=== PATIENT | male | born 1965 | race African-American/Black ===

== ENCOUNTER 2020-01-01 21:01 | Emergency (ER) | payer MEDICARE, SELFPAY ==
[2020-01-01 21:02] VITALS: BP 185/98; PULSE 90; RESP 20; TEMP 35.6; O2SAT 99
--- NOTE | 2020-01-01 21:51 | ED.DENTAL ---
HPI - Dental/Oral General Chief complaint: Dental/Oral Stated complaint: tooth ache Time Seen by Provider: 01/01/20 21:40 Source: patient and family Mode of arrival: ambulatory Limitations: no limitations History of Present Illness HPI Narrative: Patient presents with dental pain, multiple teeth in the last 2 days. Last time was seen by dentist 2 years ago.. Patient denies any fever, chills, nausea, vomiting Related Data Home Medications Medication Instructions Recorded Confirmed atorvastatin 20 mg tablet 20 mg PO DAILY 07/20/19 07/21/19 exenatide 10 mcg SUB-Q QAM AND QPM 07/20/19 07/21/19 furosemide 40 mg tablet 40 mg PO QAM 07/20/19 07/21/19 hydralazine 100 mg tablet 100 mg PO BID 07/20/19 07/21/19 irbesartan 300 mg tablet 300 mg PO DAILY 07/20/19 07/21/19 metformin 1,000 mg tablet 1,000 mg PO BID 07/20/19 07/21/19 metoprolol tartrate 100 mg tablet 100 mg PO Q12H 07/20/19 07/21/19 rivaroxaban 20 mg tablet 20 mg PO DAILY 07/20/19 07/21/19 spironolactone 25 mg tablet 25 mg PO DAILY 07/20/19 07/21/19 warfarin 5 mg tablet 5 mg PO DAILY 07/20/19 07/21/19 Allergies Allergy/AdvReac Type Severity Reaction Status Date / Time No Known Allergies Allergy Unknown Unverified 11/07/15 22:01 Review of Systems Review of Systems: Narrative: CONSTITUTIONAL: Denies fever, chills, or sweats. EYES: Denies visual changes, redness, or discharge. ENT: Denies rhinorrhea, congestion, sore throat, or otalgia. CARDIOVASCULAR: Denies chest pain, palpitations, or edema. RESPIRATORY: Denies cough or dyspnea. GASTROINTESTINAL: Denies abdominal pain, nausea, vomiting, or diarrhea. GENITOURINARY: Denies dysuria or hematuria. SKIN: Denies rash or itching. MUSCULOSKELETAL: Denies back pain, joint pain, or myalgia. NEUROLOGIC: Denies headache, numbness, or weakness. PSYCHIATRIC: Denies anxiety or depression. [facility] Past Medical History Medical History Anemia Cardiomyopathy CHF (congestive heart failure) Chronic kidney disease Depression Diabetes mellitus Esophagitis Gynecomastia Heart disease Hypertension JAQUELIN (obstructive sleep apnea) Peripheral neuralgia Uveitis Surgical History Surgical History H/O knee surgery History of gastric surgery History of sleeve gastrectomy Family History Family History Mother Diabetes mellitus Father Hypertensive CHF Social History Social History Smoking status: Never smoker Exam Narrative: Exam Narrative: General appearance: Well-developed, well-nourished Skin: Normal color Head: Normocephalic, nontraumatic Eyes: Clear conjunctiva ENT: Oropharynx normal, ears normal, nose normal, multiple dental decay Neck: Supple, nontender Chest and respiratory: Airway patent, no respiratory distress, no accessory muscle use Heart: Regular rate/rhythm Neurologic: Alert and oriented ?3, [employer] is normal as tested, no gross motor deficit Course Course Emergency Course: Stable Vital Signs Vital signs: Vital Signs Temperature 35.6 C L 01/01/20 21:02 Pulse Rate 90 01/01/20 21:02 Respiratory Rate 20 01/01/20 21:02 Blood Pressure 185/98 H 01/01/20 21:02 Pulse Oximetry 99 01/01/20 21:02 Temperature 35.6 C L 01/01/20 21:02 Pulse Rate 90 01/01/20 21:02 Respiratory Rate 20 01/01/20 21:02 Blood Pressure 185/98 H 01/01/20 21:02 Pulse Oximetry 99 01/01/20 21:02 MDM - Dental/Oral MDM Narrative Medical decision making narrative: Dental decay, patient on Coumadin, will be discharged on penicillin
[2020-01-01] MEDS: ONDANSETRON HCL ODT 4 MG TABLET PO (22:02)
[2020-01-01] MEDS: HYDROmorphone HCL INJ (*CRX) 1 MG/ML SYR IM (22:02)
[2020-01-01 22:13] VITALS: BP 155/105; PULSE 81; RESP 20; O2SAT 97
== END 2020-01-01 22:07 | disposition home or self-care (01) ==
PROVIDERS: Emergency Provider Emergency Medicine; PCP Internal Medicine Gastroenterology
DX: K02.9 Dental caries, unspecified (principal); I50.9 Heart failure, unspecified; I12.9 Hypertensive chronic kidney disease with stage 1 through stage 4 chronic kidney disease, or unspecified chronic kidney disease; E11.22 Type 2 diabetes mellitus with diabetic chronic kidney disease; N18.9 Chronic kidney disease, unspecified; G47.33 Obstructive sleep apnea (adult) (pediatric); E11.42 Type 2 diabetes mellitus with diabetic polyneuropathy; Z98.84 Bariatric surgery status; Z79.01 Long term (current) use of anticoagulants; Z79.84 Long term (current) use of oral hypoglycemic drugs
CPT/HCPCS: 96372; 99283; A9270; J1170

== ENCOUNTER 2020-11-20 12:02 | Inpatient (IN) | payer OTHER, SELFPAY ==
[2020-11-20] VITALS (14 sets, daily range): BP systolic 112–146; BP diastolic 67–93; PULSE 89–109; RESP 14–26; TEMP 36.1–36.6; O2SAT 84–95
--- NOTE | ~2020-11-20 | XR_ITS ---
XR chest 1V portable 11/22/2020 06:10 Indication: CovidPneumonia. Dyspnea. Procedure: AP portable chest Comparison: Comparison to multiple prior studies sequentially, with oldest reviewed study dated 05/26. Findings: Patchy bilateral airspace disease, compatible with pneumonia. No pleural effusion or pneumo thorax. No acute osseous abnormality. Impression: 1: Significant progression of patchy bilateral airspace disease, compatible with pneumonia. Reviewed, dictated and finalized at location A. Impression: 1: Significant progression of patchy bilateral airspace disease, compatible wit h pneumonia.
--- NOTE | ~2020-11-20 | XR_ITS ---
XR chest PICC line 11/25/2020 12:49 Indication: PICC line placement Procedure: AP portable chest Comparison: Comparison to multiple prior studies sequentially, with oldest reviewed study dated 11/22. Findings: PICC line tip in the condyle aspect of the SVC. NG tube passes into the abdomen, tip not ev aluated. There is improving patchy bilateral airspace disease. No significant effusion or pneumothora x. Endotracheal tube tip approximately 4 cm above the luana. Impression: 1: Improving bilateral airspace disease, consistent with resolving pneumonia. Reviewed, dictated and finalized at location A. Impression: 1: Improving bilateral airspace disease, consistent with resolving pneumonia.
--- NOTE | ~2020-11-20 | CT_ITS ---
EXAMINATION: CT diagnostic chest wo con DATE: 11/20/2020 19:23 INDICATION: Consolidation on chest x-ray TECHNIQUE: Computed tomography (CT) of the chest was performed without intravenous contrast. Addition al 3D reconstructions utilizing coronal maximum intensity projection (MIP) were performed. Automated exposure control and iterative reconstruction technique were employed. The dose-length product was 90 8.45 mGy-cm. COMPARISON: 11/22/2011 FINDINGS: Air bronchograms extend through a 6.7 x 5.3 cm region of consolidation in the posterior segment of th e right upper lobe. Numerous additional less dense centrilobular groundglass opacities scattered thro ughout both lungs. No pleural effusion or pneumothorax. Heart size is normal. Atherosclerotic coronar y artery calcification. No pericardial effusion. Thoracic aorta is normal in caliber. No pathological ly enlarged thoracic lymphadenopathy. Small sliding-type hiatal hernia. Sleeve gastrectomy with sutur e line along the greater curvature of the stomach. Diffuse hepatic steatosis. Bones are unremarkable. IMPRESSION: 1. Large masslike region of consolidation with central air bronchograms in the right upper lobe and n umerous additional scattered centrilobular groundglass opacities throughout both lungs consistent wit h multifocal pneumonia. 2. Diffuse hepatic steatosis. 2. Small sliding-type hiatal hernia. Reviewed, dictated and finalized at location A. IMPRESSION: 1. Large masslike region of consolidation with central air bronchograms in the right upper lobe and numerous additional scattered centrilobular groundglass op acities throughout both lungs consistent with multifocal pneumonia. 2. Diffuse hepatic steatosis. 2. Small sliding-type hiatal hernia.
--- NOTE | ~2020-11-20 | MR_ITS ---
EXAMINATION: MR lumbar spine wo con DATE: 11/21/2020 13:36 INDICATION: Back pain. Saddle anesthesia. TECHNIQUE: Magnetic resonance imaging (MRI) of the lumbar spine was performed without intravenous con trast. Sequences included sagittal T2-weighted FSE, sagittal T2-weighted FS FSE, sagittal STIR FSE, s agittal T1-weighted FSE, and axial T2-weighted FSE. COMPARISON: Lumbar spine MRI 12/11/2013, CT 11/20/2020 FINDINGS: There is 3 degrees levocurvature of lumbar spine. Vertebral body heights and intervertebral disc heights are normal. Osseous central spinal canal is developmentally small from L2 to L5. Epidur al lipomatosis is noted. The distal spinal cord signal intensity is normal. The conus medullaris is a t T12-L1. The following disc levels are specifically discussed: L1-L2: The disc does not extend beyond the endplate margin. There is mild bilateral facet joint osteo arthritis. There is no neural foraminal stenosis. There is no central canal stenosis. L2-L3: The disc does not extend beyond the endplate margin. There is moderate bilateral facet joint o steoarthritis. There is no neural foraminal stenosis. There is mild central canal stenosis. L3-L4: The disc is mildly bulging. There is mild right facet joint osteoarthritis. There is mild bila teral neural foraminal stenosis. There is mild central canal stenosis. L4-L5: The disc is mildly bulging. There is mild bilateral facet joint osteoarthritis. There is mild bilateral neural foraminal stenosis. There is mild central canal stenosis. L5-S1: The disc does not extend beyond the endplate margin. There is moderate bilateral facet joint o steoarthritis. There is no neural foraminal stenosis. There is mild central canal stenosis. IMPRESSION: 1. Mild lumbar spondylosis, stable from 12/11/2013. Reviewed, dictated and finalized at location B.
--- NOTE | ~2020-11-20 | CT_ITS ---
EXAMINATION: CT lumbar spine wo con DATE: 11/20/2020 19:23 INDICATION: Low back pain TECHNIQUE: Computed tomography (CT) of the lumbar spine was performed without intravenous contrast. A utomated exposure control and iterative reconstruction technique were employed. The dose-length produ ct was 1404.31 mGy-cm. COMPARISON: Lumbar spine MR dated 12/11/2013 FINDINGS: Alignment is normal. Vertebral body and disc heights are normal. No fracture. Multilevel mild bilater al lumbar facet osteoarthritis. Mild to moderate lower lumbar predominant central canal stenosis resu lting primarily from prominent epidural lipomatosis extending throughout the lumbar spine and small d isc bulges at L3-L4 through L5-S1 which also resulted mild bilateral neural foraminal stenosis at the se levels. Paravertebral soft tissues are unremarkable. IMPRESSION: 1. No significant interval change since 2013 in minimal to mild lumbar spondylosis along with promine nt epidural lipomatosis. No acute osseous abnormality. Reviewed, dictated and finalized at location A. IMPRESSION: 1. No significant interval change since 2013 in minimal to mild lumbar spondylo sis along with prominent epidural lipomatosis. No acute osseous abnormality.
--- NOTE | ~2020-11-20 | XR_ITS ---
EXAMINATION: XR chest 1V portable DATE: 11/24/2020 14:48 INDICATION: Acute respiratory failure. COVID-19 pneumonia. TECHNIQUE: A single frontal view of the chest was obtained. COMPARISON: Chest single view 11/23/2020, chest CT 11/20/2020 FINDINGS: There are patchy airspace opacities throughout the lungs bilaterally. No pleural effusion. The heart size is normal. The endotracheal tube tip is 3.7 cm above the luana. The nasogastric tube tip is beyond the inferior margin of the radiograph, but at least to the stomach. IMPRESSION: 1. Diffuse lung disease with worsening in left upper lobe, consistent with pneumonia. Reviewed, dictated and finalized at location B. IMPRESSION: 1. Diffuse lung disease with worsening in left upper lobe, consistent with pneu monia.
--- NOTE | ~2020-11-20 | XR_ITS ---
XR abdomen NG/feed tube insert INDICATION: Evaluate NG tube position. TECHNIQUE: Limited KUB perform for evaluating NG tube . COMPARISON: No prior studies for comparison. FINDINGS: NG tube tip in the stomach. Visualized bowel gas pattern is unremarkable.Left basilar airs pace disease. IMPRESSION: 1: NG tube tip in the stomach, near the pylorus. 2: Left basilar airspace disease, suspicious for pneumonia. Reviewed, dictated and finalized at location A.
--- NOTE | ~2020-11-20 | XR_ITS ---
XR chest ET placement 11/23/2020 10:40 Indication: Respiratory distress Procedure: AP portable chest Comparison: Comparison to multiple prior studies sequentially, with oldest reviewed study dated 07/2011. Findings: Patchy bilateral airspace disease, consistent with pneumonia. Endotracheal tube 3.8 cm abov e the luana. NG tube in the stomach. No pneumothorax. Impression: 1: Patchy bilateral airspace disease, compatible with pneumonia. Reviewed, dictated and finalized at location A. Impression: 1: Patchy bilateral airspace disease, compatible with pneumonia.
--- NOTE | ~2020-11-20 | XR_ITS ---
XR chest 1V portable 11/25/2020 05:41 Indication: Acute respiratory failure. Covid pneumonia. Procedure: AP portable chest Comparison: Comparison to multiple prior studies sequentially, with oldest reviewed study dated 11/20. Findings: Endotracheal tube tip 5 cm above the luana. NG tube in the stomach. Diffuse bilateral airs pace disease extensive bilateral airspace consolidation has progressed. No significant effusion or pn eumothorax. No acute osseous abnormality. Impression: 1: Progression of diffuse bilateral airspace disease, compatible with pneumonia. Edema less favored. Reviewed, dictated and finalized at location A. Impression: 1: Progression of diffuse bilateral airspace disease, compatible with pneumonia . Edema less favored.
--- NOTE | ~2020-11-20 | MR_ITS ---
EXAMINATION: MR thoracic spine wo con DATE: 11/21/2020 13:37 INDICATION: Back pain. Saddle anesthesia. TECHNIQUE: Magnetic resonance imaging (MRI) of the thoracic spine was performed without intravenous c ontrast. Sagittal localizer T1-weighted FSE of the cervical spine was obtained. Thoracic spine sequen soni included sagittal T2-weighted FSE, sagittal T1-weighted FSE, sagittal T2-weighted FS FSE, and axi al T2-weighted FSE. COMPARISON: Chest CT 11/20/2020 FINDINGS: Bone alignment is normal. Vertebral body heights and intervertebral disc heights are normal . There is multilevel mild facet joint osteoarthritis bilaterally. On the left, there is mild neural foraminal stenosis at T5-T6. The discs do not extend beyond the endplate margins. No central canal st enosis. Epidural lipomatosis is noted. The spinal cord signal intensity is normal. There are patchy a irspace opacities in the lungs, worst in right upper lobe, consistent with pneumonia. IMPRESSION: 1. Mild thoracic spondylosis. 2. Multifocal pneumonia. Reviewed, dictated and finalized at location B.
--- NOTE | ~2020-11-20 | XR_ITS ---
XR chest 1V portable DATE: 11/26/2020 05:43 INDICATION: Acute respiratory failure. Covid pneumonia. TECHNIQUE: Portable AP chest on 11/26/2020 at 0514 hours COMPARISON: 11/25/2020 portable AP chest at 1227 hours FINDINGS: ET tube 6.7 cm above luana; ideal range is 2-5 cm. An NG tube noted passing into the stomach. Right upper extremity PIC catheter tip overlies the upper right atrium. Severe patchy consolidating pulmonary infiltrates throughout both lungs, increased since 11/25/2020. No pleural effusion or pneumothorax is evident. IMPRESSION: ET tube tip 6.7 cm above luana; ideal range is 2-5 cm Diffuse severe patchy consolidating infiltrates, substantially increased since 11/25/2020 Reviewed, dictated and finalized at location A.
--- NOTE | ~2020-11-20 | CT_ITS ---
EXAMINATION: CT brain wo con DATE: 11/22/2020 09:59 INDICATION: Arm numbness. COVID TECHNIQUE: Computed tomography (CT) of the head was performed without intravenous contrast. Sagittal and coronal reconstructions were performed. Automated exposure control and iterative reconstruction t echnique were employed. The dose-length product was 681.00 mGy-cm. COMPARISON: head CT dated 11/07/15 FINDINGS: No acute intracranial hemorrhage, acute infarction or abnormal extra axial fluid collection. Ventricl es are normal and symmetric. No mass/mass effect. The orbits, paranasal sinuses and mastoid air cells are normal. IMPRESSION: 1. Normal brain. No acute intracranial process. Reviewed, dictated and finalized at location A.
--- NOTE | ~2020-11-20 | XR_ITS ---
EXAMINATION: XR chest 2V DATE: 11/20/2020 12:37 INDICATION: Cough TECHNIQUE: Frontal and lateral views of the chest are obtained COMPARISON: 11/07/2015 FINDINGS: There are patchy bilateral airspace opacities. A 4.9 cm mass is seen in the right upper lob e. There is no pleural effusion or pneumothorax. The cardiomediastinal silhouette is normal. There is mild thoracic spondylosis. IMPRESSION: 1. Patchy bilateral airspace opacities which could reflect atelectasis versus pneumonia. 2. Right upper lobe mass which could be focal consolidation or malignancy. Further evaluation with CT of the chest is recommended. Reviewed, dictated and finalized at location A. IMPRESSION: 1. Patchy bilateral airspace opacities which could reflect atelectasis versus p neumonia. 2. Right upper lobe mass which could be focal consolidation or malignancy. Furt her evaluation with CT of the chest is recommended.
[2020-11-20 13:02] LABS: Basophils Percent Auto 0.3 % (0.2-1.2); Hematocrit 38.7 % (42.0-52.0); Hemoglobin 13.2 g/dL (14.0-18.0); Immature Granulocyte Absolute 0.01 K/mm3 (0.00-0.031); Immature Granulocyte Percent A 0.3 % (0-0.5); Lymphocytes Absolute Auto 0.82 K/mm3 (0.9-3.2); Lymphocytes Percent Auto 22.6 % (18.3-44.2); Mean Corpuscular HGB Conc 34.1 g/dl (32-36); Mean Corpuscular Hemoglobin 28.5 pg (26-34); Mean Corpuscular Volume 83.6 fl (80-100); Mean Platelet Volume 12.4 fl (7.4-10.4); Monocytes Absolute Auto 0.3 K/mm3 (0.1-0.6); Neutrophils Absolute Auto 2.5 K/mm3 (1.3-6.7); Neutrophils Percent Auto 68.8 % (45.5-73.1); Platelet Count Result 119 k/mm3 (150-375); Red Blood Count 4.63 M/mm3 (4.6-6.20); Red Cell Distribution Width 13.1 % (11.5-14.5); White Blood Count 3.6 K/mm3 (4.5-10.0)
[2020-11-20 13:17] LABS: Alanine Aminotransferase 40 U/L (4-50); Albumin Level 4.2 g/dL (3.5-5.1); Alkaline Phosphatase 133 U/L (38-126); Anion Gap 8 mmol/L (8-16); Aspartate Amino Transferase 60 U/L (17-59); Bilirubin,Total 0.4 mg/dL (0.2-1.3); Blood Urea Nitrogen 23 mg/dL (9-20); Calcium 8.7 mg/dL (8.4-10.2); Carbon Dioxide 21 mmol/L (22-30); Chloride 97 mmol/L (98-107); Estimated CRCL calculation 65 ml/min; Estimated Glomerular Filt Rate 45; Glucose 473 mg/dL (65-110); Lipase 317 U/L (23-300); Potassium 4.6 mmol/L (3.4-5.0); Sodium 126 mmol/L (137-145)
--- NOTE | 2020-11-20 14:50 | PC.NURSE ---
Patient up to the bathroom with use of sera steady.
--- NOTE | 2020-11-20 15:09 | PC.NURSE ---
Patient back from the bathroom with use of sera-steady
[2020-11-20 15:24] LABS: Add Urine Microscopic? YES; Appearance Urine Clear (Clear); Bilirubin Urine Negative (Negative); Blood Urine Negative (Negative); Color Urine Yellow (Yellow); Glucose Urine UA 3+ mg/dL (Negative); Ketones Urine Trace mg/dL (Negative); Leukocyte Esterase Ur Negative LEU/UL (Negative); Nitrate Urine Negative (Negative); Protein Urine 2+ mg/dL (Negative); Squamous Epithelial Cell Urine Rare /hpf (Few); Urobilinogen Urine Negative mg/dL (<2.0)
[2020-11-20 15:34] LABS: Specific Grav Ur 1.031 (1.001-1.035)
--- NOTE | 2020-11-20 16:14 | ED.GENADULT ---
HPI - General Adult General Chief complaint: Unspecified Stated complaint: not feeling well, cough, diarrhea Time Seen by Provider: 11/20/20 14:27 Source: patient Mode of arrival: ambulatory Limitations: no limitations History of Present Illness HPI narrative: Patient presents for evaluation of low back pain. He indicates 2 weeks ago he was sitting up and felt a pop in his back. He immediately had decreased sensation in both feet. States the pain has been sharp, constant, 10 out of 10 in severity since that time. Reports saddle anesthesia but denies bladder/bowel incontinence. Went to [facility] approximately 1 week ago but he states that they did nothing for him . He does indicate that a Covid swab was obtained while he was there. He states that he was unable to be reviewed with him because his primary care doctor is out of the office. Over the course the last 2 weeks he has experienced a dry cough, shortness of breath with exertion and his ribs and felt sore . He has experienced nausea, vomiting, diarrhea. He denies any fevers or chills. He lives with his and he states that she has upper respiratory symptoms that he believes are related to a common cold. No other recent sick contacts. No history of Covid. He did not receive the Covid vaccination. Has been using a cough syrup that is not helping. He denies any tobacco use or marijuana use. Is currently anticoagulated with Coumadin for DVTs. He states he has not had his pro time checked in over a year because his primary care doctor just does not order it . He is diabetic and states that his blood sugars at home have been in the 200s. Related Data Home Medications Medication Instructions Recorded Confirmed atorvastatin 20 mg tablet 20 mg PO DAILY 07/20/19 07/21/19 exenatide 10 mcg SUB-Q QAM AND QPM 07/20/19 07/21/19 furosemide 40 mg tablet 40 mg PO QAM 07/20/19 07/21/19 hydralazine 100 mg tablet 100 mg PO BID 07/20/19 07/21/19 irbesartan 300 mg tablet 300 mg PO DAILY 07/20/19 07/21/19 metformin 1,000 mg tablet 1,000 mg PO BID 07/20/19 07/21/19 metoprolol tartrate 100 mg tablet 100 mg PO Q12H 04/13/20 04/14/20 rivaroxaban 20 mg tablet 20 mg PO DAILY 07/20/19 07/21/19 spironolactone 25 mg tablet 25 mg PO DAILY 07/20/19 07/21/19 warfarin 5 mg tablet 5 mg PO DAILY 07/20/19 07/21/19 Allergies Allergy/AdvReac Type Severity Reaction Status Date / Time No Known Allergies Allergy Unknown Verified 11/20/20 14:41 Review of Systems Review of Systems: CONSTITUTIONAL: Denies fever, chills, or sweats. EYES: Denies visual changes, redness, or discharge. ENT: Denies rhinorrhea, congestion, sore throat, or otalgia. CARDIOVASCULAR: Denies chest pain, palpitations, or edema. RESPIRATORY: Reports cough and shortness of breath with exertion. GASTROINTESTINAL: Reports nausea, vomiting, diarrhea. Denies abdominal pain. GENITOURINARY: Denies dysuria or hematuria. SKIN: Denies rash or itching. MUSCULOSKELETAL: Reports low back pain with radiation into bilateral lower extremities NEUROLOGIC: Reports numbness and tingling in both feet, in her thighs and both buttocks PSYCHIATRIC: Denies anxiety or depression. [facility] Past Medical History Medical History (Updated 11/20/20 @ 21:24 by JARAD Gaona, ) Anemia Cardiomyopathy CHF (congestive heart failure) Chronic kidney disease Depression Diabetes mellitus Esophagitis Gynecomastia Heart disease Hypertension JAQUELIN (obstructive sleep apnea) Peripheral neuralgia Uveitis Surgical History Surgical History H/O knee surgery History of gastric surgery History of sleeve gastrectomy Family History Family History Mother Diabetes mellitus Father Hypertensive CHF Social History Social History Smoking status: Never smoker Ge
--- NOTE | 2020-11-20 17:23 | PC.NURSE ---
made contact with [facility], [facility] and [facility] for a transfer to a [facility]. No facility has open beds for transfers
--- NOTE | 2020-11-20 18:01 | PC.NURSE ---
pt is now on [facility] waiting list
[2020-11-20] MEDS: MORPHINE SULFATE (*CRX) 4 MG/ML INJ IV PUSH (18:17)
[2020-11-20] MEDS: SODIUM CHLORIDE 0.9% IV 1,000 ML 75 ML IV CONT (18:23)
[2020-11-20 18:59] LABS: Beta-Hydroxybutyrate/Acetoacetate 0.34 mmol/L (0.02-0.27)
[2020-11-20 19:01] LABS: INR 2.6
[2020-11-20 19:02] LABS: Partial Thromboplastin Time 63.3 SECONDS (22.3-36.8)
[2020-11-20 19:06] LABS: NT Pro B Type Natriuretic Pept 112 pg/mL (5-100); Troponin I 0.027 ng/mL (0.000-0.034)
[2020-11-20 19:17] LABS: D Dimer 0.27 ug/mL (<0.48)
--- NOTE | 2020-11-20 21:22 | ECG_ITS ---
Measurements Intervals [place] Rate: 101 P: 61 MS: 171 QRS: -26 QRSD: 93 T: 59 QT: 362 QTc: 469 Interpretive Statements SINUS TACHYCARDIA DELAYED PRECORDIAL R/S TRANSITION BASELINE ARTIFACT- II, III, V5 BORDERLINE ECG Electronically Signed On 11-21-2020 6:13:43 CDT by Eros Marie D.O.
[2020-11-20] MEDS: oxyCODONE/ACETAMINOPHEN (*CRX) 5-325 MG TABLET 2 TABLET PO (21:42)
[2020-11-20] MEDS: INSULIN HUMAN REGULAR (*BKC) 100 UNITS/ML 8 UNITS SUB-Q (21:42)
[2020-11-20 21:52] LABS: EDCOVIDSCREEN Positive (Negative)
--- NOTE | 2020-11-20 23:33 | PC.NURSE ---
Report to NAKUL Will
--- NOTE | 2020-11-20 23:34 | PC.NURSE ---
Per ERP patient ok to take his nightly medications.
--- NOTE | 2020-11-20 23:40 | PC.NURSE ---
Report received from NAKUL Fragoso. Assumed care of patient at this time.
[2020-11-21] VITALS (29 sets, daily range): BP systolic 112–157; BP diastolic 73–95; PULSE 69–120; RESP 13–27; TEMP 36.1–37.1; O2SAT 84–99; BMI 43.7
[2020-11-21 01:19] LABS: Troponin I 0.031 ng/mL (0.000-0.034)
[2020-11-21] MEDS: MORPHINE SULFATE (*CRX) 4 MG/ML INJ IV PUSH (05:45)
[2020-11-21] MEDS: SODIUM CHLORIDE 0.9% IV 1,000 ML 75 ML (09:20)
--- NOTE | 2020-11-21 10:04 | ED.GENADULT ---
HPI - General Adult General Chief complaint: Unspecified Stated complaint: not feeling well, cough, diarrhea Time Seen by Provider: 11/20/20 14:27 Source: patient Mode of arrival: ambulatory Limitations: no limitations Related Data Home Medications Medication Instructions Recorded Confirmed atorvastatin 20 mg tablet 20 mg PO DAILY 07/20/19 07/21/19 exenatide 10 mcg SUB-Q QAM AND QPM 07/20/19 07/21/19 furosemide 40 mg tablet 40 mg PO QAM 07/20/19 07/21/19 hydralazine 100 mg tablet 100 mg PO BID 07/20/19 07/21/19 irbesartan 300 mg tablet 300 mg PO DAILY 07/20/19 07/21/19 metformin 1,000 mg tablet 1,000 mg PO BID 07/20/19 07/21/19 metoprolol tartrate 100 mg tablet 100 mg PO Q12H 07/20/19 07/21/19 rivaroxaban 20 mg tablet 20 mg PO DAILY 07/20/19 07/21/19 spironolactone 25 mg tablet 25 mg PO DAILY 07/20/19 07/21/19 warfarin 5 mg tablet 5 mg PO DAILY 07/20/19 07/21/19 Allergies Allergy/AdvReac Type Severity Reaction Status Date / Time No Known Allergies Allergy Unknown Verified 11/20/20 14:41 [facility] Past Medical History Medical History (Updated 11/21/20 @ 10:30 by Kia Nascimento MD) Anemia Cardiomyopathy CHF (congestive heart failure) Chronic kidney disease Depression Diabetes mellitus Esophagitis Gynecomastia Heart disease Hypertension JAQUELIN (obstructive sleep apnea) Peripheral neuralgia Uveitis Surgical History Surgical History H/O knee surgery History of gastric surgery History of sleeve gastrectomy Family History Family History Mother Diabetes mellitus Father Hypertensive CHF Social History Social History Smoking status: Never smoker Gender identity (if verbalized by the patient): Male Course Reevaluation(s) Reevaluation #1: I was told by the chief of the EDKeyla that patient need to be admitted to the hospital to get the MRI. I spoke to Dr. Padron who accepted patient admission. Vital Signs Vital signs: Vital Signs Temperature 36.1 C L 11/20/20 12:14 Pulse Rate 92 11/20/20 12:14 Respiratory Rate 18 11/20/20 12:14 Blood Pressure 121/73 11/20/20 12:14 Pulse Oximetry 95 11/20/20 12:14 Temperature 36.8 C 11/21/20 03:01 Pulse Rate 93 11/21/20 09:21 Respiratory Rate 14 11/21/20 09:21 Blood Pressure 142/87 H 11/21/20 09:21 Pulse Oximetry 97 11/21/20 09:21 Medical Decision Making Vital Signs Vital Signs: Vital Signs Temperature 36.1 C L 11/20/20 12:14 Pulse Rate 92 11/20/20 12:14 Respiratory Rate 18 11/20/20 12:14 Blood Pressure 121/73 11/20/20 12:14 Pulse Oximetry 95 11/20/20 12:14 Temperature 36.8 C 11/21/20 03:01 Pulse Rate 93 11/21/20 09:21 Respiratory Rate 14 11/21/20 09:21 Blood Pressure 142/87 H 11/21/20 09:21 Pulse Oximetry 97 11/21/20 09:21 Lab Data Result diagrams: 11/20/20 12:54 11/20/20 12:54 Labs: Lab Results 11/20/20 11/20/20 11/20/20 Range/Units 12:54 12:54 15:11 WBC 3.6 L (4.5-10.0) K/mm3 RBC 4.63 (4.6-6.20) M/mm3 Hgb 13.2 L (14.0-18.0) g/dL Hct 38.7 L (42.0-52.0) % MCV 83.6 (80-100) fl MCH 28.5 (26-34) pg MCHC 34.1 (32-36) g/dl RDW 13.1 (11.5-14.5) % Plt Count 119 L (150-375) k/mm3 MPV 12.4 H (7.4-10.4) fl Immature Gran % (Auto) 0.3 (0-0.5) % Neut % (Auto) 68.8 (45.5-73.1) % Lymph % (Auto) 22.6 (18.3-44.2) % [place] % (Auto) 8.0 (2.6-8.5) % Eos % (Auto) 0.0 (0-4.4) % Baso % (Auto) 0.3 (0.2-1.2) % Lymph # (Auto) 0.82 L (0.9-3.2) K/mm3 [place] # (Auto) 0.3 (0.1-0.6) K/mm3 Eos # (Auto) 0.0 (0-0.3) K/mm3 Baso # (Auto) 0.0 (0.0-0.1) K/mm3 Abs Immat Gran (auto) 0.01 (0.00-0.031) K/mm3 Absolute Neuts (auto) 2.5 (1.3-6.7) K/mm3 Absolute Nucleated RBC 0.0 (0.0-0.012) K/mm3 Nuc
[2020-11-21 10:44] LABS: Glucose Point of Care 347 mg/dl (65-105)
[2020-11-21] MEDS: INSULIN HUMAN REGULAR (*BKC) 100 UNITS/ML 6 UNITS IV PUSH (11:13)
--- NOTE | 2020-11-21 12:51 | PC.NURSE ---
patient to MRI
[2020-11-21] MEDS: ALBUTEROL SULFATE NEB 2.5 MG/0.5 ML INH 5 MG INHALATION ×2 (15:02→20:54)
[2020-11-21 15:19] LABS: Glucose Point of Care 381 mg/dl (65-105)
--- NOTE | 2020-11-21 15:35 | PC.NURSE ---
This patient, Rocky Mosley, was admitted to 3 [facility] Surg Room 316-01. Patient/family oriented to hospital policies and general routines including ID bracelet, bed and alarms, visiting hours, pain management, procedures, bathroom and other care routines, personal items, smoking policy, room service/diet, and visiting hours. Information on how to activate the Rapid Response Team has been discussed. Patient/Family are encouraged to report perceived risks to care and to ask questions if they do not understand what they are told or what they should do.
[2020-11-21 16:46] LABS: Glucose Point of Care 338 mg/dl (65-105)
--- NOTE | 2020-11-21 17:45 | PM.IMHP ---
H&P: HPI History of Present Illness Date/Time: 11/21/20 17:45 Rocky arrived at the ED yesterday ambulating on his own feet, complaining that he had not been feeling well, had a productive cough, and diarrhea. He is currently not having any nausea, vomiting or diarrhea. He tolerated his meal this evening. He continues to have a productive cough, cannot take a deep breath without bronchospasming into coughing fit, and becomes very dyspneic with exertion such as standing, or repositioning in bed. He states that he is having a right arm numbness and tingling that intermittently comes and goes. He denies any trauma or motor vehicle accident. But did state that he was repositioning at home, and felt a pop in his neck when this started. He does admit to having chronic and intermittent neuropathy involving numbness and tingling to his bilateral lower extremities. He did have a lumbar and thoracic MRI completed after his ED admission. Both did not show any central canal impingement or severe stenosis. A cervical MRI was not completed as of yet. He does have a cane and the cane is with him today. He denies any history of using a back brace, and denies any recent falls. Although his history of medical events seems uncertain and at times delayed with his verbal responses. I completed a full neuro assessment and while he is able to follow commands fully, his physical responses are delayed. Patient was accepted to [facility] due to saddle anesthesia but waiting on COVID bed. A COVID test was completed and resulted yesterday with a positive COVID finding. Since his oxygen requirements are increasing, I have started him on Remdesivir as well as the dexamethasone steroids, labs ordered, DuoNeb txs ordered, incentive spirometer ordered, CXR for the morning ordered. He seems to find verbal comprehension difficult at times. I have ordered an ABG and further labs. His CT scan yesterday showed: bronchograms extend through a 6.7 x 5.3 cm region of consolidation in the posterior segment of the right upper lobe. Numerous additional less dense centrilobular ground-glass opacities scattered throughout both lungs. No pleural effusion or pneumothorax. Heart size is normal. Atherosclerotic coronary artery calcification. No pericardial effusion. Thoracic aorta is normal in caliber. No pathologically enlarged thoracic lymphadenopathy. Small sliding-type hiatal hernia. Sleeve gastrectomy with suture line along the greater curvature of the stomach. Diffuse hepatic steatosis. Bones are unremarkable. IMPRESSION:1. Large masslike region of consolidation with central air bronchograms in the right upper lobe and numerous additional scattered centrilobular groundglass opacities throughout both lungs consistent with multifocal pneumonia.2 . Diffuse hepatic steatosis. 3. Small sliding-type hiatal hernia. At ED admission started on IV Azithro and Rocephin, both now discontinued. Will continue patient on oral anticoagulation as DVT prophylaxis, especially due to COVID + status. INR was 2. 6 yesterday, rechecking INR now. Glucose levels continue to be elevated. At ED admission, was 473, 429, 338, etc. Betahydroxy level also was elevated at 0.34, anion gaps were normal. Rechecking his Betahydroxy level now. Ordered ACHS glucose checks, SSI moderate dosing, and started on 10 units Lantus at bedtime. Changed him from heart healthy diet to diabetic diet. Patient will be admitted as an IN-patient for further treatment and evaluation. Chief Complaint: Productive cough, diarrhea, hyponatremia, COVID pneumonia. Review of Systems Constitutional: Constitutional: Reports as per HPI, Reports difficulty sleeping, Denies excessive sweating, Reports fatigue, Denies headache(s), Denies increased appetite, Reports lethargy, Denies snoring, Reports weakness and Denies weight gain Eyes: Eyes: Reports as per HPI, Denies exophthalmos, Denies diplopia, Denies floaters and Denies loss of peripheral vision ENT: Reports as per HPI
[2020-11-21] MEDS: INSULIN ASPART (*BKC) 100 UNITS/ML SUB-Q (18:11)
[2020-11-21 18:30] LABS: Anion Gap 12 mmol/L (8-16); Blood Urea Nitrogen 28 mg/dL (9-20); Calcium 8.2 mg/dL (8.4-10.2); Carbon Dioxide 20 mmol/L (22-30); Chloride 98 mmol/L (98-107); Estimated CRCL calculation 68 ml/min; Estimated Glomerular Filt Rate 48; Glucose 369 mg/dL (65-110); Sodium 130 mmol/L (137-145)
[2020-11-21 18:35] LABS: NT Pro B Type Natriuretic Pept 79 pg/mL (5-100)
[2020-11-21 20:38] LABS: Glucose Point of Care 429 mg/dl (65-105)
[2020-11-21 21:04] LABS: Alanine Aminotransferase 34 U/L (4-50); Estimated CRCL calculation 68 ml/min; Estimated Glomerular Filt Rate 48
[2020-11-21 21:38] LABS: Magnesium 1.7 mg/dL (1.6-2.3); Phosphorus 3.5 mg/dL (2.5-4.5)
[2020-11-21 22:12] LABS: INR 3.2; Prothrombin Time 32.1 Seconds (11.1-14.7)
[2020-11-21 22:16] LABS: Lactate Dehydrogenase 1420 U/L (313-618)
[2020-11-21 22:21] LABS: Beta-Hydroxybutyrate/Acetoacetate 1.64 mmol/L (0.02-0.27)
[2020-11-21] MEDS: REMDESIVIR 200 MG/NS 250 ML 200 MG/250 ML BAG 250 MG IVPB (22:50)
[2020-11-21] MEDS: INSULIN GLARGINE (*BKC) 100 UNITS/ML 10 UNITS SUB-Q (22:53)
[2020-11-21] MEDS: INSULIN ASPART (*BKC) 100 UNITS/ML 6 UNITS SUB-Q (22:55)
[2020-11-21] MEDS: METOPROLOL TARTRATE 50 MG TAB PO (22:58)
[2020-11-22] VITALS (24 sets, daily range): BP systolic 123–150; BP diastolic 50–96; PULSE 82–112; RESP 16–27; TEMP 36.2–37.1; O2SAT 84–94
[2020-11-22] MEDS: ALBUTEROL SULFATE NEB 2.5 MG/0.5 ML INH INHALATION ×7 (02:49→23:48)
[2020-11-22] MEDS: IPRATROPIUM BR 0.02% INH SOLN 0.5 MG/2.5 ML VIAL INHALATION ×7 (02:49→23:48)
--- NOTE | 2020-11-22 02:49 | PCRCNOTE ---
Window of time for administration has passed. See next scheduled administration.
--- NOTE | 2020-11-22 05:01 | PCRCNOTE ---
Window of time for administration has passed. See next scheduled administration.
[2020-11-22 07:11] LABS: Basophils Percent Auto 0.2 % (0.2-1.2); Hematocrit 40.7 % (42.0-52.0); Hemoglobin 13.1 g/dL (14.0-18.0); Immature Granulocyte Absolute 0.05 K/mm3 (0.00-0.031); Immature Granulocyte Percent A 1.2 % (0-0.5); Lymphocytes Absolute Auto 0.82 K/mm3 (0.9-3.2); Lymphocytes Percent Auto 19.8 % (18.3-44.2); Mean Corpuscular HGB Conc 32.2 g/dl (32-36); Mean Corpuscular Hemoglobin 28.7 pg (26-34); Mean Corpuscular Volume 89.1 fl (80-100); Mean Platelet Volume 12.3 fl (7.4-10.4); Monocytes Absolute Auto 0.4 K/mm3 (0.1-0.6); Monocytes Percent Auto 8.5 % (2.6-8.5); Neutrophils Absolute Auto 2.9 K/mm3 (1.3-6.7); Neutrophils Percent Auto 70.3 % (45.5-73.1); Platelet Count Result 142 k/mm3 (150-375); Red Blood Count 4.57 M/mm3 (4.6-6.20); Red Cell Distribution Width 13.2 % (11.5-14.5); White Blood Count 4.1 K/mm3 (4.5-10.0)
[2020-11-22 07:27] LABS: Alanine Aminotransferase 35 U/L (4-50); Alkaline Phosphatase 127 U/L (38-126); Anion Gap 15 mmol/L (8-16); Aspartate Amino Transferase 66 U/L (17-59); Bilirubin,Total 0.4 mg/dL (0.2-1.3); Blood Urea Nitrogen 26 mg/dL (9-20); Calcium 8.1 mg/dL (8.4-10.2); Carbon Dioxide 19 mmol/L (22-30); Chloride 95 mmol/L (98-107); Estimated CRCL calculation 71 ml/min; Estimated Glomerular Filt Rate 51; Glucose 385 mg/dL (65-110); Sodium 129 mmol/L (137-145)
[2020-11-22 07:42] LABS: INR 3.4; Prothrombin Time 33.2 Seconds (11.1-14.7)
[2020-11-22 08:17] LABS: Glucose Point of Care 384 mg/dl (65-105)
[2020-11-22] MEDS: INSULIN ASPART (*BKC) 100 UNITS/ML SUB-Q (08:18)
[2020-11-22] MEDS: SPIRONOLACTONE 25 MG TABLET PO (08:18)
[2020-11-22] MEDS: SODIUM CHLORIDE 0.9% IV 1,000 ML 125 ML IV CONT (08:18)
[2020-11-22] MEDS: LIDOCAINE 5% PATCH 2 PATCH TRANSDERM (08:19)
[2020-11-22] MEDS: DEXAMETHASONE 2 MG TABLET 6 MG PO (08:20)
[2020-11-22] MEDS: ATORVASTATIN 20 MG TABLET PO (08:20)
[2020-11-22] MEDS: FUROSEMIDE 40 MG TABLET PO (08:20)
[2020-11-22] MEDS: METOPROLOL TARTRATE 50 MG TAB PO ×2 (08:20→20:20)
[2020-11-22] MEDS: HYDROcodone/acetaminophen (*CRX) 5-325 MG TABLET 1 TAB PO (11:25)
[2020-11-22 12:44] LABS: Glucose Point of Care 431 mg/dl (65-105)
[2020-11-22] MEDS: INSULIN ASPART (*BKC) 100 UNITS/ML 10 UNITS SUB-Q (12:48)
[2020-11-22 13:01] LABS: Anion Gap 16 mmol/L (8-16); Blood Urea Nitrogen 31 mg/dL (9-20); Carbon Dioxide 14 mmol/L (22-30); Chloride 108 mmol/L (98-107); Estimated CRCL calculation 68 ml/min; Estimated Glomerular Filt Rate 48; Glucose 462 mg/dL (65-110); Sodium 138 mmol/L (137-145)
[2020-11-22] MEDS: WATER FOR IRRIGATION, STERILE 1,000 ML BOTTLE 1000 ML (13:01)
--- NOTE | 2020-11-22 13:26 | PM.IMPN ---
Progress Note: A&P Assessment and Plan (1) 2019 novel coronavirus-infected pneumonia (NCIP): Code(s): U07.1 - COVID-19; J12.82 - Pneumonia due to coronavirus disease 2019 Status: Acute (2) Poorly controlled diabetes mellitus: Code(s): E11.65 - Type 2 diabetes mellitus with hyperglycemia Status: Acute (3) Hyperglycemia due to type 2 diabetes mellitus: Qualifiers: Diabetes mellitus senior care insulin use: without watermaster use Qualified Code(s): E11.65 - Type 2 diabetes mellitus with hyperglycemia Code(s): E11.65 - Type 2 diabetes mellitus with hyperglycemia Status: Acute (4) JAQUELIN (obstructive sleep apnea): Code(s): G47.33 - Obstructive sleep apnea (adult) (pediatric) Status: Acute (5) DKA (diabetic ketoacidosis): Code(s): E11.10 - Type 2 diabetes mellitus with ketoacidosis without coma Status: Acute Assessment and Plan: 1. Acute hypoxemic respiratory failure due to COVID pneumonia CT scan on admission showed:bronchograms extend through a 6.7 x 5.3 cm region of consolidation in the posterior segment of the right upper lobe. Numerous additional less dense centrilobular ground-glass opacities scattered throughout both lungs. No pleural effusion or pneumothorax. Heart size is normal. Atherosclerotic coronary artery calcification. No pericardial effusion. Thoracic aorta is normal in caliber. No pathologically enlarged thoracic lymphadenopathy. Small sliding-type hiatal hernia. Sleeve gastrectomy with suture line along the greater curvature of the stomach. Diffuse hepatic steatosis. Bones are unremarkable. IMPRESSION:1. Large masslike region of consolidation with central air bronchograms in the right upper lobe and numerous additional scattered centrilobular groundglass opacities throughout both lungs consistent with multifocal pneumonia.2 . Diffuse hepatic steatosis. 3. Small sliding-type hiatal hernia. - Initiated on dexamethasone and remdisivir on admission - Currently with worsening oxygen requirement, on oxygen 11 L - Continue respiratory support, transfer to ICU as below - Isolation precautions and other COVID cares 2. Poorly-controlled diabetes mellitus, type 2 3. Diabetic ketoacidosis - Worsening during gap acidosis, elevated beta hydroxybutyrate, in with dexamethasone on board, will need initiation of insulin drip, transferred to ICU, discussed with electronics assembler - A1C is 14.0 on admission - No insulin use at home, on metformin and [place], will need an insulin regimen once his acute illness improves, tobacco educator has been consulted 4. Question of saddle anesthesia - MRI imaging of spine showed no evidence cord compression or central canal impingement or severe stenosis. - Report is [facility] but waiting on [facility] bed at [facility]. - Likely related to diabetic neuropathy with poor control 5. Obstructive sleep apnea - Continue CPAP nightly 6. Chronic back pain - Frequent repositioning encouraged - Heating pad as needed - Thoracic and lumbar MRIs completed without any severe central canal stenosis or impingement noted - Get better glucose levels controlled to reduce the effects of neuropathy - PT/OT evaluation ordered. - PRN pain meds - Lidocaine patches 7. Hypertension Per home med list, patient was on spironolactone, hydralazine, irbesartan, and metoprolol, furosemide for BP control. These have been on hold given soft BP except metoprolol at half of dose of 50mg Q12 hours due to his HR 90-100. Can be gradually added as needed. 8. CKD stage 3 - Likely diabetic nephropathy - Evidence of proteinuria on urinalysis - Will need nephrology follow-up in outpatient Subjective Date/time seen: 11/22/20 13:26 No major issues listed home this morning worsening dyspnea. Uncomfortable. Increasing oxygen requirements. Currently at 11 L high-flow oxygen. Saturating at 90 %. Exam Narrative: Gen: Alert, looks u
[2020-11-22 13:27] LABS: Potassium 4.9 mmol/L (3.4-5.0)
--- NOTE | 2020-11-22 13:34 | WPDCNINT ---
Assessment and Plan Assessment and plan (1) DKA (diabetic ketoacidosis): Code(s): E11.10 - Type 2 diabetes mellitus with ketoacidosis without coma Status: Acute Assessment and Plan: patient appears to have uncontrolled hyperglycemia from uncontrolled diabetes and now being on steroids his lab work is consistent with DKA since he has positive beta hydroxybutyrate patient also appears dehydrated will transfer patient to ICU and start IV insulin infusion serial labs will only give limited amount of fluids as patient also has COVID-19 pneumonia (2) Dehydration: Code(s): E86.0 - Dehydration Status: Acute Assessment and Plan: Patient appears to be dehydrated hold diuretics will give 500 mL of LR bolus and another 500 mL infusion. conservative IV fluid management due to COVID-19 (3) Acute respiratory failure due to COVID-19: Code(s): U07.1 - COVID-19; J96.00 - Acute respiratory failure, unspecified whether with hypoxia or hypercapnia Status: Acute Assessment and Plan: Patient currently on 11 L nasal cannula Incentive spirometry and up in chair to minimize atelectasis Cautious IVF CPAP at night for obstructive sleep apnea (4) 2019 novel coronavirus-infected pneumonia (NCIP): Code(s): U07.1 - COVID-19; J12.82 - Pneumonia due to coronavirus disease 2019 Status: Acute Assessment and Plan: SARS-CoV-2 PCR positive on 11/20 Patient is in Airborne, Droplet and Contact Isolation Continue dexamethasone , remdesivir Actemra is not available due to nationwide shortage Follow inflammatory periodically (5) Poorly controlled diabetes mellitus: Code(s): E11.65 - Type 2 diabetes mellitus with hyperglycemia Status: Acute Assessment and Plan: patient's hemoglobin A1c is 14 will start patient on IV insulin infusion also add Lantus (6) Acute back pain: Code(s): M54.9 - Dorsalgia, unspecified Status: Acute Assessment and Plan: Appears to be acute musculoskeletal pain CT L SPine - 1. No significant interval change since 2013 in minimal to mild lumbar spondylosis along with prominent epidural lipomatosis. No acute osseous abnormality. MRI L Spine - Mild lumbar spondylosis, stable from 12/11/2013. MRI T Spine . Mild thoracic spondylosis. Pain control with lidocaine patch, p.o. Ryegate, and IV p.r.n. morphine PT OT (7) Hypertension: Code(s): I10 - Essential (primary) hypertension Status: Acute Assessment and Plan: continue metoprolol hold Aldactone add p.r.n. Lopressor and hydralazine adjust accordingly (8) Chronic kidney disease: Code(s): N18.9 - Chronic kidney disease, unspecified Status: Acute Assessment and Plan: patient told me that he has chronic kidney disease although he did not give me exact details his creatinine is 1.8 will monitor urine output electrolytes hold Aldactone and Lasix at this time Additional Plan DVT prophylaxis - patient is on warfarin. INR is supratherapeutic and warfarin is on hold at this time Nutrition - diabetic diet Code Status - Full Code Total Critical Care Time - 35 minutes Due to a high probability of clinically significant, life threatening deterioration, the patient required my highest level of preparedness to intervene emergently and I personally spent this critical care time directly and personally managing the patient. This critical care time included obtaining a history; examining the patient; pulse oximetry; ordering and review of studies; arranging urgent treatment with development of a management plan; evaluation of patient's response to treatment; frequent reassessment; and discussions with other providers. It was exclusive of separately billable procedures and treating other patients and teaching time. Please see Assessment and Plan section and the rest of the note for further information on patient assessment and treatment
[2020-11-22 14:13] LABS: Magnesium 1.9 mg/dL (1.6-2.3); Phosphorus 3.4 mg/dL (2.5-4.5)
--- NOTE | 2020-11-22 14:30 | PC.NURSE ---
This patient, Rocky Mosley, was transferred to ICU 1 on 11/22/20 at 1430. Personal belongings sent with patient. Report given to [ ]. Appropriate documentation sent with patient.
--- NOTE | 2020-11-22 14:56 | PC.NURSE ---
Call made to nursing department chairperson. Message left.
[2020-11-22] MEDS: INSULIN HUMAN REGULAR (*BKC) 100 UNITS in SODIUM CHLORIDE 0.9% IV 99 ML 8.1 UNITS IV CONT (15:18)
[2020-11-22] MEDS: LACTATED RINGERS 500 ML 999 ML IV CONT (15:20)
[2020-11-22 16:36] LABS: CRP 16.1 mg/dL (<1.0)
[2020-11-22] MEDS: LACTATED RINGERS 1,000 ML 100 ML IV CONT ×2 (16:52→20:19)
[2020-11-22 17:21] LABS: Glucose Point of Care 397 mg/dl (65-105)
[2020-11-22 17:21] LABS: Glucose Point of Care 460 mg/dl (65-105)
[2020-11-22 17:21] LABS: Glucose Point of Care 467 mg/dl (65-105)
[2020-11-22 18:07] LABS: Glucose Point of Care 360 mg/dl (65-105)
[2020-11-22 18:52] LABS: Anion Gap 13 mmol/L (8-16); Blood Urea Nitrogen 31 mg/dL (9-20); Calcium 8.3 mg/dL (8.4-10.2); Carbon Dioxide 19 mmol/L (22-30); Chloride 100 mmol/L (98-107); Estimated CRCL calculation 71 ml/min; Estimated Glomerular Filt Rate 51; Glucose 361 mg/dL (65-110); Potassium 4.8 mmol/L (3.4-5.0); Sodium 132 mmol/L (137-145)
[2020-11-22 19:04] LABS: Glucose Point of Care 341 mg/dl (65-105)
[2020-11-22] MEDS: REMDESIVIR 100 MG/NS 250 ML 100 MG/250 ML BAG 250 MG IVPB (20:32)
[2020-11-22 21:12] LABS: Glucose Point of Care 305 mg/dl (65-105)
[2020-11-22 21:12] LABS: Glucose Point of Care 319 mg/dl (65-105)
[2020-11-22 22:11] LABS: Anion Gap 10 mmol/L (8-16); Blood Urea Nitrogen 31 mg/dL (9-20); Calcium 8.5 mg/dL (8.4-10.2); Carbon Dioxide 20 mmol/L (22-30); Chloride 106 mmol/L (98-107); Estimated CRCL calculation 81 ml/min; Estimated Glomerular Filt Rate 59; Glucose 262 mg/dL (65-110); Potassium 5.3 mmol/L (3.4-5.0); Sodium 136 mmol/L (137-145)
[2020-11-22] MEDS: INSULIN HUMAN REGULAR (*BKC) 100 UNITS in SODIUM CHLORIDE 0.9% IV 99 ML 19.26 UNITS IV CONT (22:16)
[2020-11-22 22:22] LABS: Glucose Point of Care 274 mg/dl (65-105)
[2020-11-22 23:11] LABS: Glucose Point of Care 253 mg/dl (65-105)
[2020-11-23] VITALS (35 sets, daily range): BP systolic 134–184; BP diastolic 47–100; PULSE 24–110; RESP 21–30; TEMP 36.2–37.1; O2SAT 87–101; BMI 43.7
[2020-11-23] MEDS: guaiFENesin 200 MG/10 ML UDC 600 MG PO ×3 (00:50→23:53)
[2020-11-23 00:56] LABS: Glucose Point of Care 176 mg/dl (65-105)
[2020-11-23 02:07] LABS: Glucose Point of Care 173 mg/dl (65-105)
[2020-11-23] MEDS: IPRATROPIUM BR 0.02% INH SOLN 0.5 MG/2.5 ML VIAL INHALATION ×4 (02:12→19:43)
[2020-11-23] MEDS: ALBUTEROL SULFATE NEB 2.5 MG/0.5 ML INH INHALATION ×4 (02:12→19:43)
--- NOTE | 2020-11-23 02:48 | PC.NURSE ---
Spoke to Gutierrez cause gap is 10 and Deja had 2 blood sugars under 180. He said to give 30units lantus and continue to titrate the gtt
[2020-11-23] MEDS: INSULIN GLARGINE (*BKC) 100 UNITS/ML 30 UNITS SUB-Q (03:03)
[2020-11-23 03:07] LABS: Glucose Point of Care 116 mg/dl (65-105)
[2020-11-23 04:37] LABS: Glucose Point of Care 101 mg/dl (65-105)
[2020-11-23 04:50] LABS: Hematocrit 42.6 % (42.0-52.0); Hemoglobin 13.6 g/dL (14.0-18.0); Mean Corpuscular HGB Conc 31.9 g/dl (32-36); Mean Corpuscular Hemoglobin 28.3 pg (26-34); Mean Corpuscular Volume 88.8 fl (80-100); Mean Platelet Volume 11.9 fl (7.4-10.4); Platelet Count Result 187 k/mm3 (150-375); Red Cell Distribution Width 13.4 % (11.5-14.5); White Blood Count 7.4 K/mm3 (4.5-10.0)
[2020-11-23 05:01] LABS: INR 3.8; Prothrombin Time 35.9 Seconds (11.1-14.7)
[2020-11-23 05:09] LABS: Alanine Aminotransferase 36 U/L (4-50); Albumin Level 3.7 g/dL (3.5-5.1); Alkaline Phosphatase 119 U/L (38-126); Anion Gap 9 mmol/L (8-16); Aspartate Amino Transferase 61 U/L (17-59); Bilirubin,Total 0.4 mg/dL (0.2-1.3); Blood Urea Nitrogen 31 mg/dL (9-20); Calcium 8.9 mg/dL (8.4-10.2); Carbon Dioxide 24 mmol/L (22-30); Chloride 108 mmol/L (98-107); Estimated CRCL calculation 86 ml/min; Estimated Glomerular Filt Rate > 60; Glucose 104 mg/dL (65-110); Lactate Dehydrogenase 1953 U/L (313-618); Magnesium 2.2 mg/dL (1.6-2.3); Potassium 4.1 mmol/L (3.4-5.0); Sodium 141 mmol/L (137-145)
[2020-11-23 06:27] LABS: Glucose Point of Care 134 mg/dl (65-105)
[2020-11-23 06:57] LABS: Alveolar/Arterial O2 Gradient 627.1 mmHg; Base Excess ABG -3.2 mEq/l (+/-2.0); Carboxyhemoglobin 0.3 % THb (0-2.0); Fractional Inspired Oxygen 100 %; HCO3 ABG 20.6 mEq/l (22.0-26.0); Methemoglobin ABG 0.3 %THb (0-1.5); Oxygen Content ABG 17.3 %vol (16.0-22.0); Oxygen Saturation ABG 87.5 % (95.0-100.0); PCO2 ABG 33.7 mmHg (35.0-45.0); PO2 ABG 52.2 mmHg (80.0-100.0); PO2 FiO2 Ratio Arterial Blood 0.52 %; Reduced Hemoglobin 12.4 %THb (0-5.0); Total Hemoglobin 14.2 g/dL (12.0-18.0); pH ABG 7.405 (7.350-7.450)
[2020-11-23 06:58] LABS: Modified Allen's Test Pass; Site Drawn RIGHT RADIAL
[2020-11-23 06:59] LABS: Device HIGH FLOW NASAL CANN
[2020-11-23] MEDS: ATORVASTATIN 20 MG TABLET PO (09:52)
[2020-11-23] MEDS: DEXAMETHASONE 2 MG TABLET 6 MG PO (09:52)
[2020-11-23] MEDS: METOPROLOL TARTRATE 50 MG TAB PO ×2 (09:52→20:34)
[2020-11-23] MEDS: LIDOCAINE 5% PATCH 2 PATCH TRANSDERM (09:53)
[2020-11-23] MEDS: PROPOFOL IV EMULSION 100 ML 4.63 MG IV CONT (10:15)
[2020-11-23] MEDS: hydrALAZINE HCL 20 MG/ML VIAL IV PUSH (11:44)
[2020-11-23] MEDS: PROPOFOL IV EMULSION 100 ML 37.03 MG IV CONT ×2 (12:56→16:36)
--- NOTE | 2020-11-23 13:13 | WPDINTPN ---
Progress Note: A&P Assessment and Plan (1) Acute respiratory failure due to COVID-19: Code(s): U07.1 - COVID-19; J96.00 - Acute respiratory failure, unspecified whether with hypoxia or hypercapnia Status: Acute Assessment and Plan: Overnight patient has been requiring more oxygen was on 60 L flow rate and 100% FiO2 on air wall along with non-rebreather. His O2 sats were in the 80s. Patient was placed in a BiPAP when he had a coughing bout and his O2 sats were in the 70s. Patient was intubated on 11/23/2020. -intubation was uneventful -patient currently on 100% FiO2, peep of 12, ABGs pending -sedated with propofol (2) DKA (diabetic ketoacidosis): Code(s): E11.10 - Type 2 diabetes mellitus with ketoacidosis without coma Status: Acute Assessment and Plan: patient appears to have uncontrolled hyperglycemia from uncontrolled diabetes and now being on steroids his lab work is consistent with DKA since he has positive beta hydroxybutyrate, along with dehydration. Patient was given IV fluids cautiously due to COVID pneumonia -anion gap closes this morning, patient was transition to long-acting insulin, Lantus and sliding scale insulin. Insulin infusion has been turned off (3) Dehydration: Code(s): E86.0 - Dehydration Status: Acute Assessment and Plan: Resolved (4) 2019 novel coronavirus-infected pneumonia (NCIP): Code(s): U07.1 - COVID-19; J12.82 - Pneumonia due to coronavirus disease 2019 Status: Acute Assessment and Plan: SARS-CoV-2 PCR positive on 11/20 Patient is in Airborne, Droplet and Contact Isolation Continue dexamethasone , remdesivir Actemra is not available due to nationwide shortage Follow inflammatory periodically (5) Poorly controlled diabetes mellitus: Code(s): E11.65 - Type 2 diabetes mellitus with hyperglycemia Status: Acute Assessment and Plan: patient's hemoglobin A1c is 14 Now on Lantus and sliding scale insulin (6) Acute back pain: Code(s): M54.9 - Dorsalgia, unspecified Status: Acute Assessment and Plan: Appears to be acute musculoskeletal pain CT L SPine - 1. No significant interval change since 2013 in minimal to mild lumbar spondylosis along with prominent epidural lipomatosis. No acute osseous abnormality. MRI L Spine - Mild lumbar spondylosis, stable from 12/11/2013. MRI T Spine . Mild thoracic spondylosis. Pain control with lidocaine patch, now with IV fentanyl (7) Hypertension: Code(s): I10 - Essential (primary) hypertension Status: Acute Assessment and Plan: continue metoprolol P.r.n. hydralazine and labetalol (8) Chronic kidney disease: Code(s): N18.9 - Chronic kidney disease, unspecified Status: Acute Assessment and Plan: patient told me that he has chronic kidney disease although he did not give me exact details, could be related to hypertension, diabetic nephropathy -under down to 1.4 (from 1.9 on admission) hold Aldactone and Lasix at this time Additional Plan DVT prophylaxis - patient is on warfarin. INR is supratherapeutic and warfarin is on hold at this time Nutrition -NPO for now Code Status - Full Code Total Critical Care Time -42 minutes Due to a high probability of clinically significant, life threatening deterioration, the patient required my highest level of preparedness to intervene emergently and I personally spent this critical care time directly and personally managing the patient. This critical care time included obtaining a history; examining the patient; pulse oximetry; ordering and review of studies; arranging urgent treatment with development of a management plan; evaluation of patient's response to treatment; frequent reassessment; and discussions with other providers. It was exclusive of separately billable procedures and treating other patients and teaching time. Please see Assessment and Plan section and
[2020-11-23] MEDS: FENTANYL 2,500MCG/NS250ML(*CRX 2,500 MCG/250 ML BAG IV CONT (13:21)
--- NOTE | 2020-11-23 13:29 | WPDPROCEDUR ---
Procedures Intubation Intubation Date: 11/23/20 Intubation Time: 10:05 A pre-procedural Time-Out was completed immediately before starting the procedure and confirmed: Patient Identification, Site, Procedure, Patient Position and the Availability of Requisite Equipment: Yes Sedative: etomidate Paralytic: rocuronium Laryngoscope: fiber optic video scope Assist device used: fiber optic device Tube secured depth (cm): 25 Tube secured location: lips Tube placement confirmation: visualized tube passing through cords, equal breath sounds bilaterally, no breath sounds over epigastrium and confirmation by capnometry Patient tolerated procedure: well Intubation complications: none
[2020-11-23] MEDS: MIDAZOLAM 100MG/NS 100ML(*CRX) 100 MG/100 ML BAG IV CONT (13:30)
[2020-11-23] MEDS: LACTATED RINGERS 1,000 ML 100 ML IV CONT ×2 (13:32→16:35)
[2020-11-23 13:41] LABS: Alveolar/Arterial O2 Gradient 591.4 mmHg; Device VENTILATOR; Fractional Inspired Oxygen 100 %; HCO3 ABG 21.2 mEq/l (22.0-26.0); Modified Allen's Test Pass; Oxygen Content ABG 18.4 %vol (16.0-22.0); Oxygen Saturation ABG 96.6 % (95.0-100.0); Oxyhemoglobin 95.7 % THb (90.0-100.0); PCO2 ABG 35.2 mmHg (35.0-45.0); PO2 ABG 86.4 mmHg (80.0-100.0); PO2 FiO2 Ratio Arterial Blood 0.86 %; Site Drawn LEFT RADIAL; Total Hemoglobin 13.6 g/dL (12.0-18.0); pH ABG 7.397 (7.350-7.450)
[2020-11-23 13:42] LABS: Arterial Blood Gas PEEP 12 cmH2O; Arterial Blood Gas Tidal Volume 500 ml; Arterial Blood Gas Vent Mode CMV; Arterial Blood Gas Ventilator rate 24 /MIN
[2020-11-23 13:55] LABS: Ferritin 1422 ng/mL (26-388)
[2020-11-23 18:13] LABS: Glucose Point of Care 132 mg/dl (65-105)
[2020-11-23 18:13] LABS: Glucose Point of Care 99 mg/dl (65-105)
[2020-11-23 18:13] LABS: Glucose Point of Care 102 mg/dl (65-105)
[2020-11-23 18:13] LABS: Glucose Point of Care 165 mg/dl (65-105)
[2020-11-23] MEDS: PROPOFOL IV EMULSION 100 ML 27.77 MG IV CONT (20:02)
[2020-11-23 20:22] LABS: Glucose Point of Care 319 mg/dl (65-105)
[2020-11-23] MEDS: INSULIN GLARGINE (*BKC) 100 UNITS/ML 20 UNITS SUB-Q (20:35)
[2020-11-23] MEDS: INSULIN ASPART (*BKC) 100 UNITS/ML SUB-Q (20:35)
--- NOTE | 2020-11-23 21:11 | PC.NURSE ---
Roseline called to give permission for patients sister Tien Perera to receive updates on patient condition will patient is intubated.
[2020-11-23] MEDS: REMDESIVIR 100 MG/NS 250 ML 100 MG/250 ML BAG 250 MG IVPB (22:50)
[2020-11-23] MEDS: MINERAL OIL/WHITE PETROLATUM OINTMENT 1 APPLIC EACH EYE (23:51)
[2020-11-24] VITALS (44 sets, daily range): BP systolic 102–200; BP diastolic 62–104; PULSE 86–137; RESP 18–26; TEMP 36.3–36.7; O2SAT 88–98
[2020-11-24] MEDS: PROPOFOL IV EMULSION 100 ML 27.77 MG IV CONT ×6 (00:15→23:19)
[2020-11-24] MEDS: ALBUTEROL SULFATE NEB 2.5 MG/0.5 ML INH INHALATION ×7 (00:19→23:02)
[2020-11-24] MEDS: IPRATROPIUM BR 0.02% INH SOLN 0.5 MG/2.5 ML VIAL INHALATION ×7 (00:19→23:02)
[2020-11-24 00:25] LABS: Glucose Point of Care 372 mg/dl (65-105)
[2020-11-24] MEDS: INSULIN ASPART (*BKC) 100 UNITS/ML SUB-Q ×2 (00:38→07:29)
[2020-11-24] MEDS: LACTATED RINGERS 1,000 ML 100 ML IV CONT (03:31)
--- NOTE | 2020-11-24 04:59 | PC.NURSE ---
call received from [facility] party coordinator, update provided - patient remains on wait list for bed.
[2020-11-24 05:04] LABS: Base Excess ABG -6.6 mEq/l (+/-2.0); Carboxyhemoglobin 0.3 % THb (0-2.0); Fractional Inspired Oxygen 100 %; HCO3 ABG 19.9 mEq/l (22.0-26.0); Methemoglobin ABG 0.3 %THb (0-1.5); Oxygen Content ABG 16.7 %vol (16.0-22.0); Oxygen Saturation ABG 89.4 % (95.0-100.0); PCO2 ABG 43.1 mmHg (35.0-45.0); PO2 ABG 62.9 mmHg (80.0-100.0); PO2 FiO2 Ratio Arterial Blood 0.63 %; Reduced Hemoglobin 9.4 %THb (0-5.0); Total Hemoglobin 13.2 g/dL (12.0-18.0)
[2020-11-24 05:17] LABS: Modified Allen's Test Pass; Site Drawn LEFT RADIAL; pH ABG 7.282 (7.350-7.450)
[2020-11-24 05:18] LABS: Device VENTILATOR
[2020-11-24 05:20] LABS: Arterial Blood Gas PEEP 12 cmH2O; Arterial Blood Gas Vent Mode CMV; Arterial Blood Gas Ventilator rate 24 /MIN
[2020-11-24 05:21] LABS: Arterial Blood Gas Tidal Volume 500 ml
[2020-11-24] MEDS: guaiFENesin 200 MG/10 ML UDC 600 MG PO ×3 (07:23→17:48)
[2020-11-24] MEDS: MIDAZOLAM 100MG/NS 100ML(*CRX) 100 MG/100 ML BAG IV CONT (07:25)
[2020-11-24 07:42] LABS: Glucose Point of Care 392 mg/dl (65-105)
[2020-11-24] MEDS: ATORVASTATIN 20 MG TABLET PO (09:10)
[2020-11-24] MEDS: DEXAMETHASONE 2 MG TABLET 6 MG PO (09:10)
[2020-11-24] MEDS: METOPROLOL TARTRATE 50 MG TAB PO ×2 (09:10→21:50)
[2020-11-24] MEDS: MINERAL OIL/WHITE PETROLATUM OINTMENT 1 APPLIC EACH EYE ×2 (09:11→21:49)
[2020-11-24] MEDS: INSULIN GLARGINE (*BKC) 100 UNITS/ML 6 UNITS SUB-Q (09:13)
[2020-11-24] MEDS: PANTOPRAZOLE SODIUM IV 40 MG VIAL IV PUSH (10:55)
--- NOTE | 2020-11-24 11:05 | PCDIET ---
ICU Rounding Note: Patient proning at this time. MD order to start tube feedings. Recommended Glucerna 1.2 beginning at 20mL/hr. Advance by 10mL/hr every 8 hours, as tolerated, to goal of 50mL/hr x 22 hours/day for 1320kcal (2053kcal with Propofol at current rate which is 24kcal/kg ideal body weight, 15kcal/kg actual body weight), 66g protein and 885mL free water. Recommend 30mL water flush every 4 hours. Last recorded weight is 130.6kg which is decreased from admission. +I/O. Will monitor. Bowel Motility: Last documented BM on 11/23/20 x 1. Labs Reviewed: Glu (392) Meds Noted: Albuterol, Dexamethasone, Novolog, Lantus, Lipitor, Fentanyl, Atrovent, LR at 100mL/hr, Lopressor, Versed, Morphine, Remdesivir, Propofol (rate of 27.774mL/hr provides 733kcal per day) Additional Notes: No skin breakdown, per RN. Lantus increased. Following daily in ICU rounds. Assessing/reassessing every Saturday/Saturday.
--- NOTE | 2020-11-24 11:30 | WPDINTPN ---
Progress Note: A&P Assessment and Plan (1) Acute respiratory failure due to COVID-19: Code(s): U07.1 - COVID-19; J96.00 - Acute respiratory failure, unspecified whether with hypoxia or hypercapnia Status: Acute Assessment and Plan: Overnight patient has been requiring more oxygen was on 60 L flow rate and 100% FiO2 on air wall along with non-rebreather. His O2 sats were in the 80s. Patient was placed in a BiPAP when he had a coughing bout and his O2 sats were in the 70s. Patient was intubated on 11/23/2020. -intubation was uneventful -patient currently on 100% FiO2, peep of 12, - ABGS and CXR reviewed - sedated with propofol - continue bronchodilators and pulmicort (2) DKA (diabetic ketoacidosis): Code(s): E11.10 - Type 2 diabetes mellitus with ketoacidosis without coma Status: Acute Assessment and Plan: patient appears to have uncontrolled hyperglycemia from uncontrolled diabetes and now being on steroids his lab work is consistent with DKA since he has positive beta hydroxybutyrate, along with dehydration. Patient was given IV fluids cautiously due to COVID pneumonia -anion gap closes this morning, patient was transition to long-acting insulin, Lantus and sliding scale insulin. -OFF Insulin infusion (3) Dehydration: Code(s): E86.0 - Dehydration Status: Acute Assessment and Plan: Resolved (4) 2019 novel coronavirus-infected pneumonia (NCIP): Code(s): U07.1 - COVID-19; J12.82 - Pneumonia due to coronavirus disease 2018 Status: Acute Assessment and Plan: SARS-CoV-2 PCR positive on 11/20 Patient is in Airborne, Droplet and Contact Isolation Continue dexamethasone , remdesivir Actemra is not available due to nationwide shortage Follow inflammatory periodically (5) Poorly controlled diabetes mellitus: Code(s): E11.65 - Type 2 diabetes mellitus with hyperglycemia Status: Acute Assessment and Plan: patient's hemoglobin A1c is 14 Now on Lantus and sliding scale insulin (6) Acute back pain: Code(s): M54.9 - Dorsalgia, unspecified Status: Acute Assessment and Plan: Appears to be acute musculoskeletal pain CT L SPine - 1. No significant interval change since 2013 in minimal to mild lumbar spondylosis along with prominent epidural lipomatosis. No acute osseous abnormality. MRI L Spine - Mild lumbar spondylosis, stable from 12/11/2013. MRI T Spine . Mild thoracic spondylosis. Pain control with lidocaine patch, now with IV fentanyl (7) Hypertension: Code(s): I10 - Essential (primary) hypertension Status: Acute Assessment and Plan: continue metoprolol P.r.n. hydralazine and labetalol (8) Chronic kidney disease: Code(s): N18.9 - Chronic kidney disease, unspecified Status: Acute Assessment and Plan: patient told me that he has chronic kidney disease although he did not give me exact details, could be related to hypertension, diabetic nephropathy -under down to 1.4 (from 1.9 on admission) - decrease IV fluids - hold Aldactone and Lasix at this time Additional Plan DVT prophylaxis - patient is on warfarin. INR is supratherapeutic and warfarin is on hold at this time Nutrition -Start tube feeds Stress Ulcer prophylaxis: protonix Code Status - Full Code Total Critical Care Time : 33 minutes Due to a high probability of clinically significant, life threatening deterioration, the patient required my highest level of preparedness to intervene emergently and I personally spent this critical care time directly and personally managing the patient. This critical care time included obtaining a history; examining the patient; pulse oximetry; ordering and review of studies; arranging urgent treatment with development of a management plan; evaluation of patient's response to treatment; frequent reassessment; and discussions with other providers. It was exclusive of separately jack
[2020-11-24 12:22] LABS: Glucose Point of Care 454 mg/dl (65-105)
[2020-11-24] MEDS: LIDOCAINE HCL 1% PF INJ 5 ML VIAL INFILTRATE (12:35)
[2020-11-24 14:23] LABS: Hematocrit 36.2 % (42.0-52.0); Hemoglobin 11.6 g/dL (14.0-18.0); Mean Corpuscular Hemoglobin 28.5 pg (26-34); Mean Corpuscular Volume 88.9 fl (80-100); Mean Platelet Volume 11.8 fl (7.4-10.4); Platelet Count Result 221 k/mm3 (150-375); Red Blood Count 4.07 M/mm3 (4.6-6.20); Red Cell Distribution Width 13.8 % (11.5-14.5); White Blood Count 7.6 K/mm3 (4.5-10.0)
[2020-11-24] MEDS: INSULIN HUMAN REGULAR (*BKC) 100 UNITS/ML 10 UNITS IV PUSH (14:29)
[2020-11-24] MEDS: FENTANYL 2,500MCG/NS250ML(*CRX 2,500 MCG/250 ML BAG 10 MCG IV CONT (14:30)
[2020-11-24] MEDS: INSULIN HUMAN REGULAR (*BKC) 100 UNITS in SODIUM CHLORIDE 0.9% IV 99 ML 7.9 UNITS IV CONT (14:34)
[2020-11-24 14:35] LABS: INR 4.8; Prothrombin Time 43.4 Seconds (11.1-14.7)
[2020-11-24 14:50] LABS: CRP 6.7 mg/dL (<1.0)
[2020-11-24 16:29] LABS: Glucose Point of Care > 500 mg/dl (65-105)
[2020-11-24 16:29] LABS: Glucose Point of Care 493 mg/dl (65-105)
[2020-11-24 16:30] LABS: Glucose Point of Care > 500 mg/dl (65-105)
[2020-11-24 18:03] LABS: Glucose Point of Care 442 mg/dl (65-105)
[2020-11-24 18:31] LABS: Glucose Point of Care 474 mg/dl (65-105)
[2020-11-24 19:22] LABS: Alanine Aminotransferase 29 U/L (4-50); Albumin Level 3.1 g/dL (3.5-5.1); Alkaline Phosphatase 115 U/L (38-126); Anion Gap 10 mmol/L (8-16); Aspartate Amino Transferase 49 U/L (17-59); Bilirubin,Total 0.3 mg/dL (0.2-1.3); Blood Urea Nitrogen 43 mg/dL (9-20); Calcium 7.9 mg/dL (8.4-10.2); Carbon Dioxide 21 mmol/L (22-30); Chloride 101 mmol/L (98-107); Estimated CRCL calculation 65 ml/min; Estimated Glomerular Filt Rate 51; Glucose 545 mg/dL (65-110); Potassium 5.3 mmol/L (3.4-5.0); Sodium 132 mmol/L (137-145)
[2020-11-24] MEDS: INSULIN HUMAN REGULAR (*BKC) 100 UNITS in SODIUM CHLORIDE 0.9% IV 99 ML 23.3 UNITS IV CONT (21:40)
[2020-11-24] MEDS: REMDESIVIR 100 MG/NS 250 ML 100 MG/250 ML BAG 250 MG IVPB (21:48)
[2020-11-24] MEDS: INSULIN GLARGINE (*BKC) 100 UNITS/ML 26 UNITS SUB-Q (22:08)
[2020-11-24 23:29] LABS: Glucose Point of Care 410 mg/dl (65-105)
[2020-11-24 23:29] LABS: Glucose Point of Care 351 mg/dl (65-105)
[2020-11-24 23:29] LABS: Glucose Point of Care 384 mg/dl (65-105)
[2020-11-24 23:29] LABS: Glucose Point of Care 369 mg/dl (65-105)
[2020-11-24 23:29] LABS: Glucose Point of Care 400 mg/dl (65-105)
[2020-11-25] VITALS (48 sets, daily range): BP systolic 106–169; BP diastolic 69–99; PULSE 64–111; RESP 22–27; TEMP 36–36.5; O2SAT 90–100
[2020-11-25] MEDS: INSULIN HUMAN REGULAR (*BKC) 100 UNITS in SODIUM CHLORIDE 0.9% IV 99 ML 26 UNITS IV CONT (01:40)
[2020-11-25] MEDS: guaiFENesin 200 MG/10 ML UDC 600 MG PO ×3 (01:46→23:45)
[2020-11-25] MEDS: PROPOFOL IV EMULSION 100 ML 27.77 MG IV CONT ×7 (02:51→23:43)
[2020-11-25] MEDS: MIDAZOLAM 100MG/NS 100ML(*CRX) 100 MG/100 ML BAG IV CONT ×2 (03:30→21:48)
[2020-11-25] MEDS: IPRATROPIUM BR 0.02% INH SOLN 0.5 MG/2.5 ML VIAL INHALATION ×4 (04:14→20:11)
[2020-11-25] MEDS: ALBUTEROL SULFATE NEB 2.5 MG/0.5 ML INH INHALATION ×4 (04:14→20:12)
[2020-11-25 04:50] LABS: Alveolar/Arterial O2 Gradient 377.7 mmHg; Base Excess ABG -3.5 mEq/l (+/-2.0); Fractional Inspired Oxygen 70 %; Methemoglobin ABG 0.3 %THb (0-1.5); Oxygen Content ABG 20.8 %vol (16.0-22.0); Oxygen Saturation ABG 92.8 % (95.0-100.0); Oxyhemoglobin 93.5 % THb (90.0-100.0); PCO2 ABG 46.9 mmHg (35.0-45.0); PO2 FiO2 Ratio Arterial Blood 1.01 %; Reduced Hemoglobin 6.2 %THb (0-5.0); Total Hemoglobin 15.8 g/dL (12.0-18.0); pH ABG 7.309 (7.350-7.450)
[2020-11-25 04:51] LABS: Arterial Blood Gas Ventilator rate 24 /MIN; Device VENTILATOR; Modified Allen's Test Unable to perform; Site Drawn LEFT RADIAL
[2020-11-25 04:52] LABS: Arterial Blood Gas PEEP 12 cmH2O; Arterial Blood Gas Tidal Volume 500 ml; Arterial Blood Gas Vent Mode CMV
[2020-11-25 05:19] LABS: Hematocrit 38.6 % (42.0-52.0); Hemoglobin 12.7 g/dL (14.0-18.0); Mean Corpuscular HGB Conc 32.9 g/dl (32-36); Mean Corpuscular Hemoglobin 28.7 pg (26-34); Mean Corpuscular Volume 87.3 fl (80-100); Mean Platelet Volume 11.1 fl (7.4-10.4); Platelet Count Result 268 k/mm3 (150-375); Red Blood Count 4.42 M/mm3 (4.6-6.20); Red Cell Distribution Width 13.9 % (11.5-14.5)
[2020-11-25 06:38] LABS: Glucose Point of Care 209 mg/dl (65-105)
[2020-11-25 06:38] LABS: Glucose Point of Care 222 mg/dl (65-105)
[2020-11-25 06:38] LABS: Glucose Point of Care 108 mg/dl (65-105)
[2020-11-25 06:38] LABS: Glucose Point of Care 250 mg/dl (65-105)
[2020-11-25 06:38] LABS: Glucose Point of Care 126 mg/dl (65-105)
[2020-11-25 06:38] LABS: Glucose Point of Care 296 mg/dl (65-105)
[2020-11-25 06:38] LABS: Glucose Point of Care 155 mg/dl (65-105)
[2020-11-25 07:20] LABS: Lactate Dehydrogenase 2113 U/L (313-618)
[2020-11-25 07:25] LABS: Anion Gap 6 mmol/L (8-16); Blood Urea Nitrogen 42 mg/dL (9-20); Calcium 8.5 mg/dL (8.4-10.2); Carbon Dioxide 21 mmol/L (22-30); Chloride 113 mmol/L (98-107); Estimated CRCL calculation 81 ml/min; Estimated Glomerular Filt Rate > 60; Glucose 116 mg/dL (65-110); Potassium 4.8 mmol/L (3.4-5.0); Sodium 140 mmol/L (137-145)
[2020-11-25 07:26] LABS: Alanine Aminotransferase 28 U/L (4-50); Albumin Level 3.2 g/dL (3.5-5.1); Alkaline Phosphatase 110 U/L (38-126); Aspartate Amino Transferase 53 U/L (17-59); Bilirubin,Total 0.6 mg/dL (0.2-1.3); Magnesium 2.8 mg/dL (1.6-2.3); Total Protein 6.7 g/dL (6.3-8.2)
[2020-11-25] MEDS: INSULIN HUMAN REGULAR (*BKC) 100 UNITS in SODIUM CHLORIDE 0.9% IV 99 ML 5.9 UNITS IV CONT (08:01)
[2020-11-25 09:00] LABS: Glucose Point of Care 106 mg/dl (65-105)
[2020-11-25] MEDS: FENTANYL 2,500MCG/NS250ML(*CRX 2,500 MCG/250 ML BAG 10 MCG IV CONT (10:10)
[2020-11-25 10:23] LABS: Partial Thromboplastin Time 51.3 SECONDS (22.3-36.8); Prothrombin Time 46.6 Seconds (11.1-14.7)
[2020-11-25] MEDS: MINERAL OIL/WHITE PETROLATUM OINTMENT 1 APPLIC EACH EYE ×2 (10:41→20:18)
[2020-11-25] MEDS: amLODIPine BESYLATE 5 MG TABLET 10 MG PO (10:43)
[2020-11-25] MEDS: METOPROLOL TARTRATE 50 MG TAB PO ×2 (10:43→20:17)
[2020-11-25] MEDS: PANTOPRAZOLE SODIUM IV 40 MG VIAL IV PUSH (10:44)
[2020-11-25] MEDS: ATORVASTATIN 20 MG TABLET PO (10:44)
[2020-11-25 10:50] LABS: INR 5.3
[2020-11-25 11:10] LABS: Glucose Point of Care 102 mg/dl (65-105)
[2020-11-25 11:10] LABS: Glucose Point of Care 109 mg/dl (65-105)
[2020-11-25 11:10] LABS: Glucose Point of Care 112 mg/dl (65-105)
--- NOTE | 2020-11-25 11:33 | PCDIET ---
Nutrition Follow-Up Complete: Nutrition Diagnosis: Inadequate oral intake related to oral intubation as evidenced by NPO status. Nutrition Goal: Patient to meet estimated nutritional needs. Goal in progress. Patient tolerating Glucerna 1.2 which is advancing toward goal of 50mL/hr with 30mL water flush every 4 hours. Last recorded weight is 138.7 kg which is increased from last review. +I/O. 1350mL urine output on 11/24/20. Bowel Motility: Last documented BM on 11/23/20 x 1. Labs Reviewed: RBC (4.42), Hgb (12.7), Hct (38.6), Glu (116), BUN (42), Cr (1.4), Alb (3.2), Cl (113), Mg (2.8) Meds Noted: Albuterol, Norvasc, Lipitor, Nimbex, Decadron, Fentanyl, Lantus, IV Insulin, Atrovent, Lopressor, Versed, Protonix, Remdesivir, Propofol (rate of 27.774mL/hr provides 733kcal per day) Additional Notes: adding Miralax. No documented skin breakdown. Will continue to monitor with same goal. Nutrition Monitoring and Evaluation: Follow up every Saturday/Saturday.
--- NOTE | 2020-11-25 11:59 | WPDINTPN ---
Progress Note: A&P Assessment and Plan (1) Acute respiratory failure due to COVID-19: Code(s): U07.1 - COVID-19; J96.00 - Acute respiratory failure, unspecified whether with hypoxia or hypercapnia Status: Acute Assessment and Plan: Patient failed BiPAP in the ICU as he was having bouts of coughing and desaturations and was intubated on 11/23/2020. -intubation was uneventful -patient currently on 70% FiO2, peep of 12, - ABGS and CXR reviewed - sedated with propofol - continue bronchodilators and pulmicort (2) 2019 novel coronavirus-infected pneumonia (NCIP): Code(s): U07.1 - COVID-19; J12.82 - Pneumonia due to coronavirus disease 2019 Status: Acute Assessment and Plan: SARS-CoV-2 PCR positive on 11/20 Patient is in Airborne, Droplet and Contact Isolation Continue dexamethasone , remdesivir Actemra is not available due to nationwide shortage Follow inflammatory periodically -Remdesivir is known to cause elevation of the INR, there is not enough literature to support it is a false elevation or causes any bleeding. Will continue Remdesivir (3) DKA (diabetic ketoacidosis): Code(s): E11.10 - Type 2 diabetes mellitus with ketoacidosis without coma Status: Acute Assessment and Plan: patient appears to have uncontrolled hyperglycemia from uncontrolled diabetes and now being on steroids his lab work is consistent with DKA since he has positive beta hydroxybutyrate, along with dehydration. Patient was given IV fluids cautiously due to COVID pneumonia -11/23/2020: Anion gap closes this morning, patient was transition to long-acting insulin, Lantus and sliding scale insulin. -11/24/2020: Patient blood sugars were in the 400s and 500s, restarted on insulin infusion. This could also be related to the steroids. (4) Dehydration: Code(s): E86.0 - Dehydration Status: Acute Assessment and Plan: Resolved (5) Poorly controlled diabetes mellitus: Code(s): E11.65 - Type 2 diabetes mellitus with hyperglycemia Status: Acute Assessment and Plan: patient's hemoglobin A1c is 14 Continue insulin infusion (6) Acute back pain: Code(s): M54.9 - Dorsalgia, unspecified Status: Acute Assessment and Plan: Appears to be acute musculoskeletal pain CT L SPine - 1. No significant interval change since 2013 in minimal to mild lumbar spondylosis along with prominent epidural lipomatosis. No acute osseous abnormality. MRI L Spine - Mild lumbar spondylosis, stable from 12/11/2013. MRI T Spine . Mild thoracic spondylosis. Pain control with lidocaine patch, now with IV fentanyl (7) Hypertension: Code(s): I10 - Essential (primary) hypertension Status: Acute Assessment and Plan: continue metoprolol P.r.n. hydralazine and labetalol (8) Chronic kidney disease: Code(s): N18.9 - Chronic kidney disease, unspecified Status: Acute Assessment and Plan: patient told me that he has chronic kidney disease although he did not give me exact details, could be related to hypertension, diabetic nephropathy -creatinine down to 1.4 (from 1.9 on admission) - decrease IV fluids - hold Aldactone and Lasix at this time Additional Plan DVT prophylaxis - patient is on warfarin. INR is supratherapeutic and warfarin is on hold at this time Nutrition -tolerating tube feeds Stress Ulcer prophylaxis: protonix Discussed with Roseline, patient's and updated her with patient's condition plan of care. Answered all questions. She was of the view of how long will this take to resolve, did tell her we take patients in the ICU a day at a time it is difficult to protect how quickly he will turn around. Code Status - Full Code Total Critical Care Time : 32 minutes Due to a high probability of clinically significant, life threatening deterioration, the patient required my highest level of preparedness to intervene emergently and I pers
[2020-11-25] MEDS: CENTRAL LINE FLUSH 10 ML IV PUSH ×2 (13:46→20:18)
[2020-11-25] MEDS: INSULIN GLARGINE (*BKC) 100 UNITS/ML 26 UNITS SUB-Q (20:18)
[2020-11-25 20:31] LABS: Glucose Point of Care 109 mg/dl (65-105)
[2020-11-25 20:31] LABS: Glucose Point of Care 144 mg/dl (65-105)
[2020-11-25 20:31] LABS: Glucose Point of Care 149 mg/dl (65-105)
[2020-11-25 20:31] LABS: Glucose Point of Care 90 mg/dl (65-105)
[2020-11-25 20:31] LABS: Glucose Point of Care 112 mg/dl (65-105)
[2020-11-25] MEDS: REMDESIVIR 100 MG/NS 250 ML 100 MG/250 ML BAG 250 MG IVPB (21:46)
[2020-11-25] MEDS: INSULIN HUMAN REGULAR (*BKC) 100 UNITS in SODIUM CHLORIDE 0.9% IV 99 ML 12.7 UNITS IV CONT (21:47)
[2020-11-25 21:56] LABS: Glucose Point of Care 151 mg/dl (65-105)
[2020-11-25 23:55] LABS: Glucose Point of Care 140 mg/dl (65-105)
[2020-11-26] VITALS (38 sets, daily range): BP systolic 109–173; BP diastolic 74–106; PULSE 90–140; RESP 14–26; TEMP 36.1–37.1; O2SAT 90–100
[2020-11-26 03:28] LABS: Alveolar/Arterial O2 Gradient 443.4 mmHg; Base Excess ABG -0.9 mEq/l (+/-2.0); Carboxyhemoglobin 0.3 % THb (0-2.0); Fractional Inspired Oxygen 80 %; HCO3 ABG 24.7 mEq/l (22.0-26.0); Methemoglobin ABG 0.4 %THb (0-1.5); Oxygen Content ABG 17.3 %vol (16.0-22.0); Oxygen Saturation ABG 95.3 % (95.0-100.0); Oxyhemoglobin 94.5 % THb (90.0-100.0); PCO2 ABG 44.9 mmHg (35.0-45.0); PO2 ABG 79.9 mmHg (80.0-100.0); Reduced Hemoglobin 4.8 %THb (0-5.0); pH ABG 7.359 (7.350-7.450)
[2020-11-26 03:29] LABS: Device VENTILATOR; Modified Allen's Test Pass; Site Drawn RIGHT RADIAL
[2020-11-26 03:30] LABS: Arterial Blood Gas PEEP 12 cmH2O; Arterial Blood Gas Tidal Volume 500 ml; Arterial Blood Gas Vent Mode CMV; Arterial Blood Gas Ventilator rate 24 /MIN
[2020-11-26] MEDS: PROPOFOL IV EMULSION 100 ML 27.77 MG IV CONT ×6 (03:35→21:55)
[2020-11-26] MEDS: ALBUTEROL SULFATE NEB 2.5 MG/0.5 ML INH INHALATION ×4 (05:21→20:15)
[2020-11-26] MEDS: IPRATROPIUM BR 0.02% INH SOLN 0.5 MG/2.5 ML VIAL INHALATION ×4 (05:21→20:15)
[2020-11-26] MEDS: CENTRAL LINE FLUSH 10 ML IV PUSH ×2 (05:46→20:51)
[2020-11-26] MEDS: guaiFENesin 200 MG/10 ML UDC 600 MG PO (05:47)
[2020-11-26 06:06] LABS: Glucose Point of Care 96 mg/dl (65-105)
[2020-11-26 06:06] LABS: Glucose Point of Care 120 mg/dl (65-105)
[2020-11-26 06:06] LABS: Glucose Point of Care 136 mg/dl (65-105)
[2020-11-26 06:09] LABS: Hematocrit 40.4 % (42.0-52.0); Hemoglobin 12.5 g/dL (14.0-18.0); Mean Corpuscular HGB Conc 30.9 g/dl (32-36); Mean Corpuscular Hemoglobin 28.2 pg (26-34); Mean Platelet Volume 11.4 fl (7.4-10.4); Platelet Count Result 231 k/mm3 (150-375); Red Blood Count 4.44 M/mm3 (4.6-6.20); Red Cell Distribution Width 14.2 % (11.5-14.5); White Blood Count 10.3 K/mm3 (4.5-10.0)
[2020-11-26 06:19] LABS: INR 4.4; Partial Thromboplastin Time 36.1 SECONDS (22.3-36.8); Prothrombin Time 40.6 Seconds (11.1-14.7)
[2020-11-26 06:29] LABS: Alanine Aminotransferase 33 U/L (4-50); Alkaline Phosphatase 120 U/L (38-126); Anion Gap 5 mmol/L (8-16); Aspartate Amino Transferase 74 U/L (17-59); Bilirubin,Total 0.4 mg/dL (0.2-1.3); Blood Urea Nitrogen 42 mg/dL (9-20); Calcium 8.1 mg/dL (8.4-10.2); Carbon Dioxide 25 mmol/L (22-30); Chloride 112 mmol/L (98-107); Estimated CRCL calculation 94 ml/min; Estimated Glomerular Filt Rate > 60; Glucose 103 mg/dL (65-110); Magnesium 2.3 mg/dL (1.6-2.3); Potassium 4.9 mmol/L (3.4-5.0); Sodium 142 mmol/L (137-145)
[2020-11-26] MEDS: INSULIN HUMAN REGULAR (*BKC) 100 UNITS in SODIUM CHLORIDE 0.9% IV 99 ML 8.8 UNITS IV CONT (08:18)
[2020-11-26] MEDS: FUROSEMIDE INJ 40 MG/4 ML VIAL IV PUSH (08:37)
[2020-11-26] MEDS: ATORVASTATIN 20 MG TABLET PO (08:38)
[2020-11-26] MEDS: amLODIPine BESYLATE 5 MG TABLET 10 MG PO (08:38)
[2020-11-26] MEDS: MINERAL OIL/WHITE PETROLATUM OINTMENT 1 APPLIC EACH EYE ×2 (08:39→20:51)
[2020-11-26] MEDS: METOPROLOL TARTRATE 50 MG TAB PO ×2 (08:39→20:51)
[2020-11-26] MEDS: PANTOPRAZOLE SODIUM IV 40 MG VIAL IV PUSH ×2 (08:39→08:40)
[2020-11-26] MEDS: polyethylene glycoL 3350 17 GM POWD.PACK PO (08:40)
[2020-11-26] MEDS: FENTANYL 2,500MCG/NS250ML(*CRX 2,500 MCG/250 ML BAG 10 MCG IV CONT (10:48)
--- NOTE | 2020-11-26 11:44 | WPDINTPN ---
Progress Note: A&P Assessment and Plan (1) Acute respiratory failure due to COVID-19: Code(s): U07.1 - COVID-19; J96.00 - Acute respiratory failure, unspecified whether with hypoxia or hypercapnia Status: Acute Assessment and Plan: Patient failed BiPAP in the ICU as he was having bouts of coughing and desaturations and was intubated on 11/23/2020. -intubation was uneventful -patient currently on 80% FiO2, peep of 12, will wean FiO2 to maintain O2 sats greater than 92% - ABGS and CXR reviewed - sedated with propofol - continue bronchodilators and pulmicort -diurese patient today (2) 2019 novel coronavirus-infected pneumonia (NCIP): Code(s): U07.1 - COVID-19; J12.82 - Pneumonia due to coronavirus disease 2019 Status: Acute Assessment and Plan: SARS-CoV-2 PCR positive on 11/20 Patient is in Airborne, Droplet and Contact Isolation Continue dexamethasone , remdesivir Actemra is not available due to nationwide shortage Follow inflammatory periodically -Remdesivir is known to cause elevation of the INR, there is not enough literature to support it is a false elevation or causes any bleeding. -INR improving this morning, Will continue Remdesivir (3) DKA (diabetic ketoacidosis): Code(s): E11.10 - Type 2 diabetes mellitus with ketoacidosis without coma Status: Acute Assessment and Plan: patient appears to have uncontrolled hyperglycemia from uncontrolled diabetes and now being on steroids his lab work is consistent with DKA since he has positive beta hydroxybutyrate, along with dehydration. Patient was given IV fluids cautiously due to COVID pneumonia -11/23/2020: Anion gap closes this morning, patient was transition to long-acting insulin, Lantus and sliding scale insulin. -11/24/2020: Patient blood sugars were in the 400s and 500s, restarted on insulin infusion. This could also be related to the steroids. -continue insulin infusion (4) Dehydration: Code(s): E86.0 - Dehydration Status: Acute Assessment and Plan: Resolved (5) Poorly controlled diabetes mellitus: Code(s): E11.65 - Type 2 diabetes mellitus with hyperglycemia Status: Acute Assessment and Plan: patient's hemoglobin A1c is 14 Continue insulin infusion (6) Acute back pain: Code(s): M54.9 - Dorsalgia, unspecified Status: Acute Assessment and Plan: Appears to be acute musculoskeletal pain CT L SPine - 1. No significant interval change since 2013 in minimal to mild lumbar spondylosis along with prominent epidural lipomatosis. No acute osseous abnormality. MRI L Spine - Mild lumbar spondylosis, stable from 12/11/2013. MRI T Spine . Mild thoracic spondylosis. Pain control with lidocaine patch, now with IV fentanyl (7) Hypertension: Code(s): I10 - Essential (primary) hypertension Status: Acute Assessment and Plan: continue metoprolol P.r.n. hydralazine and labetalol (8) Chronic kidney disease: Code(s): N18.9 - Chronic kidney disease, unspecified Status: Acute Assessment and Plan: patient told me that he has chronic kidney disease although he did not give me exact details, could be related to hypertension, diabetic nephropathy -creatinine down to 1.2 (from 1.9 on admission) -off maintenance IV fluids -will diurese patient today Additional Plan DVT prophylaxis - patient is on warfarin. INR is supratherapeutic and warfarin is on hold at this time Nutrition -tolerating tube feeds Stress Ulcer prophylaxis: protonix Discussed with Roseline, patient's and updated her with patient's condition plan of care. Answered all questions. Code Status - Full Code Total Critical Care Time : 32 minutes Due to a high probability of clinically significant, life threatening deterioration, the patient required my highest level of preparedness to intervene emergently and I personally spent this critical care time directly and
[2020-11-26 18:16] LABS: Glucose Point of Care 130 mg/dl (65-105)
[2020-11-26 18:16] LABS: Glucose Point of Care 99 mg/dl (65-105)
[2020-11-26 18:16] LABS: Glucose Point of Care 120 mg/dl (65-105)
[2020-11-26 18:16] LABS: Glucose Point of Care 143 mg/dl (65-105)
[2020-11-26 18:16] LABS: Glucose Point of Care 128 mg/dl (65-105)
[2020-11-26 18:16] LABS: Glucose Point of Care 125 mg/dl (65-105)
[2020-11-26] MEDS: INSULIN GLARGINE (*BKC) 100 UNITS/ML 26 UNITS SUB-Q (20:51)
[2020-11-26] MEDS: MIDAZOLAM 100MG/NS 100ML(*CRX) 100 MG/100 ML BAG 6 MG IV CONT (20:52)
[2020-11-26] MEDS: INSULIN HUMAN REGULAR (*BKC) 100 UNITS in SODIUM CHLORIDE 0.9% IV 99 ML 7 UNITS IV CONT (20:55)
[2020-11-26] MEDS: fentaNYL CITRATE INJ (*CRX) 100 MCG/2 ML VIAL IV PUSH (22:46)
[2020-11-26 22:54] LABS: Glucose Point of Care 118 mg/dl (65-105)
[2020-11-26 22:54] LABS: Glucose Point of Care 116 mg/dl (65-105)
[2020-11-27] VITALS: PULSE 108
[2020-11-27 00:36] VITALS: PULSE 107; RESP 24
[2020-11-27] MEDS: PROPOFOL IV EMULSION 100 ML 37.03 MG IV CONT (00:36)
[2020-11-27 00:45] LABS: Glucose Point of Care 131 mg/dl (65-105)
[2020-11-27 00:49] VITALS: PULSE 107; RESP 24
[2020-11-27 00:50] VITALS: PULSE 107; RESP 24
[2020-11-27 01:38] LABS: Glucose Point of Care 148 mg/dl (65-105)
[2020-11-27 01:42] VITALS: PULSE 105
[2020-11-27 01:43] VITALS: BP 133/82; PULSE 105; RESP 24; TEMP 36.8; O2SAT 98
--- NOTE | 2020-12-24 13:14 | PM.TDS ---
Transfer Discharge Sum: Prov Provider Date of admission: 11/21/20 10:21 Primary care physician: Josee Cornell, Admitting clinician: Jose Sawyer MD Consults: 11/22/20 13:29 Consult to Dietitian Routine Reason for Consult:: DKA admission DS: Admitting Diagnosis Discharge Date 11/27/20 Admitting Diagnosis Saddle anesthesia, DKA, COVID pneumonia, acute hypoxic respiratory failure DS: Discharge Diagnosis Discharge Diagnosis (1) Acute respiratory failure due to COVID-19: Code(s): U07.1 - COVID-19; J96.00 - Acute respiratory failure, unspecified whether with hypoxia or hypercapnia Status: Acute Assessment and Plan: Patient failed BiPAP in the ICU as he was having bouts of coughing and desaturations and was intubated on 11/23/2020. -intubation was uneventful -patient currently on 80% FiO2, peep of 12, will wean FiO2 to maintain O2 sats greater than 92% - ABGS and CXR reviewed - sedated with propofol - continue bronchodilators and pulmicort (2) 2019 novel coronavirus-infected pneumonia (NCIP): Code(s): U07.1 - COVID-19; J12.82 - Pneumonia due to coronavirus disease 2019 Status: Acute Assessment and Plan: SARS-CoV-2 PCR positive on 11/20 Patient is in Airborne, Droplet and Contact Isolation Continue dexamethasone , remdesivir Actemra is not available due to nationwide shortage Follow inflammatory periodically -Remdesivir is known to cause elevation of the INR, there is not enough literature to support it is a false elevation or causes any bleeding. -INR improving this morning, Will continue Remdesivir (3) DKA (diabetic ketoacidosis): Code(s): E11.10 - Type 2 diabetes mellitus with ketoacidosis without coma Status: Acute Assessment and Plan: patient appears to have uncontrolled hyperglycemia from uncontrolled diabetes and now being on steroids his lab work is consistent with DKA since he has positive beta hydroxybutyrate, along with dehydration. Patient was given IV fluids cautiously due to COVID pneumonia -11/23/2020: Anion gap closes this morning, patient was transition to long-acting insulin, Lantus and sliding scale insulin. -11/24/2020: Patient blood sugars were in the 400s and 500s, restarted on insulin infusion. This could also be related to the steroids. -continue insulin infusion -patient is hemoglobin A1c was 14.0 on 11/21/2020 (4) Acute back pain: Code(s): M54.9 - Dorsalgia, unspecified Status: Acute Assessment and Plan: Presented with saddle anesthesia Appears to be acute musculoskeletal pain CT L SPine - 1. No significant interval change since 2013 in minimal to mild lumbar spondylosis along with prominent epidural lipomatosis. No acute osseous abnormality. MRI L Spine - Mild lumbar spondylosis, stable from 12/11/2013. MRI T Spine . Mild thoracic spondylosis. (5) GERD (gastroesophageal reflux disease): Qualifiers: Esophagitis presence: esophagitis presence not specified Qualified Code(s): K21.9 - Gastro-esophageal reflux disease without esophagitis Code(s): K21.9 - Gastro-esophageal reflux disease without esophagitis Status: Acute Assessment and Plan: Continue Protonix (6) Hypertension: Code(s): I10 - Essential (primary) hypertension Status: Acute Assessment and Plan: Continue metoprolol (7) Chronic kidney disease: Code(s): N18.9 - Chronic kidney disease, unspecified Status: Acute Assessment and Plan: patient has chronic kidney disease, could be related to hypertension, diabetic nephropathy -creatinine down to 1.2 (from 1.9 on admission) -off maintenance IV fluids -will diurese patient Transfer Discharge Sum: Med Medications Active and Home Medications: Home Medications atorvastatin 20 mg tablet 20 mg PO DAILY 07/20/19 [History Confirmed 11/22/20] exenatide 10 mcg SUB-Q QAM AND QPM 07/20/19 [History Confirmed 11/21/20] furosemide 40 mg t
== END 2020-11-27 02:50 | disposition short-term general hospital (02) | DRG 137 ==
LOC: ANHED 11-21 08:10 → ANH3MEDSUR 11-21 14:01 → ANHICU 11-22 17:35 → ANH3MEDSUR 11-29 10:00 → ANHICU 11-29 10:00
PROVIDERS: Internal Medicine; Nurse Practitioner; Physician Assistant; Admitting Provider Internal Medicine Critical Care Medicine; Emergency Provider Emergency Medicine; PCP Internal Medicine Gastroenterology; Visit Provider Internal Medicine Nephrology
DX: U07.1 COVID-19 (principal); J96.01 Acute respiratory failure with hypoxia; J12.82 Pneumonia due to coronavirus disease 2019; I50.9 Heart failure, unspecified; E11.10 Type 2 diabetes mellitus with ketoacidosis without coma; M79.2 Neuralgia and neuritis, unspecified; M54.9 Dorsalgia, unspecified; I42.9 Cardiomyopathy, unspecified; G47.33 Obstructive sleep apnea (adult) (pediatric); E11.22 Type 2 diabetes mellitus with diabetic chronic kidney disease; I13.0 Hypertensive heart and chronic kidney disease with heart failure and stage 1 through stage 4 chronic kidney disease, or unspecified chronic kidney disease; N18.30 Chronic kidney disease, stage 3 unspecified; K21.9 Gastro-esophageal reflux disease without esophagitis; E86.0 Dehydration; R20.0 Anesthesia of skin; E87.1 Hypo-osmolality and hyponatremia; E11.40 Type 2 diabetes mellitus with diabetic neuropathy, unspecified; Z79.01 Long term (current) use of anticoagulants; Z79.84 Long term (current) use of oral hypoglycemic drugs; Z98.84 Bariatric surgery status
CPT/HCPCS: 31500; 36415; 36569; 36600; 70450; 71045; 71046; 71250; 72131; 72146; 72148; 80048; 80053; 81001; 82010; 82375; 82565; 82728; 82805; 82948; 83036; 83050; 83615; 83690; 83735; 83880; 84100; 84443; 84460; 84484; 85025; 85027; 85380; 85610; 85730; 86140; 87040; 87426; 93005; 94002; 94003; 94640; 96365; 96367; 96374; 96375; 99285; A9270; C1751; C9113; C9803; J0360; J0456; J0696; J1100; J1815; J1940; J2250; J2270; J2704; J3010; J7030; J7120; J8540